=== PATIENT | female | born 1960 | race Caucasian/White ===

== ENCOUNTER 2017-05-05 08:43 | Emergency (ER) | payer OTHER ==
[2017-05-05 08:50] VITALS: O2SAT 94
[2017-05-05] MEDS ORDERED: MOTRIN 600 MG PO ONE (08:59)
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
[2017-05-05] MEDS ORDERED: MOTRIN 600 MG ONE (09:03)
--- NOTE | 2017-05-05 10:09 | XRAY ---
Indication: Pain following injury. Comparison: None 3 nonweightbearing views of the left foot demonstrates tiny posterior talar accessory ossicle and tiny plantar heel spur. No other bony, articular, or soft tissue abnormalities.
--- NOTE | 2017-05-05 10:09 | XRAY ---
Indication: Pain following injury. Comparison: None 3 views of the left ankle demonstrates tiny posterior talar accessory ossicle and tiny plantar heel spur. No other bony, articular, or soft tissue abnormalities.
[2017-05-05 10:34] VITALS: BP 137/78; PULSE 66
== END 2017-05-05 10:45 | disposition home or self-care (01) ==
LOC: ED 08:43
DX: S90.32XA Contusion of left foot, initial encounter (principal); W22.8XXA Striking against or struck by other objects, initial encounter; I10 Essential (primary) hypertension
CPT/HCPCS: 73610; 73630; 99283; A9270-GY

== ENCOUNTER 2017-11-25 15:24 | Observation (INO) | payer OTHER ==
[2017-11-25] MEDS ORDERED: APRESOLINE 20 MG/ML INJ IV ONE ×2 (16:35→18:38)
[2017-11-25] MEDS ORDERED: Catapres 0.1 MG PO ONE (16:36)
[2017-11-25] MEDS ORDERED: DUONEB 0.5-3 MG/3 ml Neb IH ONE ×2 (16:38→16:54)
--- NOTE | 2017-11-25 16:42 | ERPHSYRPT ---
- History of Present Illness Time Seen by Provider: 11/25/17 16:00 Source: patient Exam Limitations: clinical condition Patient Subjective Stated Complaint: pt her per PCP office, went for cough and congestion, taking OTC meds with no relief, PCP advised HTN, manual pressure at time of triage Triage Nursing Assessment: pt alert and oriented to person, place and time, states she has chest congestion, cough, runny nose, went to PCP for symptoms, advised in office she was hypertensive, pt states she was given PO med for BP but unsure what, Physician History: PATIENT WITH A HISTORY OF COPD AND HYPERTENSION REFERRED FROM PRIMARY CARE PROVIDER FOR EVALUATION OF BLOOD PRESSURE. HAS CHRONIC PRODUCTIVE COUGH. DENIES HEADACHE, CHEST PAIN. HAS BEEN PLACED OF SEVERAL DIFFERENT BLOOD PRESSURE MEDICATIONS OVER THE PAST 6 MONTHS, COREG, NORVASC AND LISINOPRIL UNABLE TO TAKE DUE TO SIDE EFFECTS. Timing/Duration: day(s) Severity: moderate Associated Symptoms: shortness of breath, cough Allergies/Adverse Reactions: fentanyl [From Duragesic] Adverse Reaction (Intermediate, Verified 05/05/17 08: 50) shaking/ jerking oxycodone HCl [From Percocet] Adverse Reaction (Mild, Verified 05/05/17 08:50) Vomiting Home Medications: Trazodone HCl 150 mg [Desyrel 150 MG] 150 mg PO HS 03/16/12 [History] Atenolol 100 mg PO BID 05/05/17 [History] Hx Tetanus, Diphtheria Vaccination/Date Given: Yes Hx Influenza Vaccination/Date Given: No Hx Pneumococcal Vaccination/Date Given: No - Review of Systems Constitutional: No Fever, No Chills Eyes: No Symptoms Ears, Nose, & Throat: No Symptoms Respiratory: Cough, Dyspnea on Exertion (FERNANDEZ), No Dyspnea Cardiac: No Symptoms, No Chest Pain, No Edema, No Syncope Abdominal/Gastrointestinal: No Symptoms, No Abdominal Pain, No Nausea, No Vomiting, No Diarrhea Genitourinary Symptoms: No Symptoms, No Dysuria Musculoskeletal: No Symptoms, No Back Pain, No Neck Pain Skin: No Rash Neurological: No Dizziness, No Focal Weakness, No Sensory Changes Psychological: No Symptoms Endocrine: No Symptoms All Other Systems: Reviewed and Negative - Past Medical History Pertinent Past Medical History: Yes Neurological History: Migraines ENT History: No Pertinent History Cardiac History: No Pertinent History Respiratory History: COPD Endocrine Medical History: No Pertinent History Musculoskeletal History: Arthritis, Degenerative Disk Disease GI Medical History: No Pertinent History History: No Pertinent History Psycho-Social History: Anxiety, Depression Female Reproductive Disorders: No Pertinent History Other Medical History: pain clinic patient, sees Dr. Cardenas for back pain - Past Surgical History Past Surgical History: Yes Neuro Surgical History: No Pertinent History Cardiac: No Pertinent History Respiratory: No Pertinent History Gastrointestinal: No Pertinent History Genitourinary: No Pertinent History Musculoskeletal: No Pertinent History Female Surgical History: Hysterectomy Other Surgical History: tonsilectomy as a child - Social History Smoking Status: Current every day smoker How long have you smoked: 45 years Exposure to second hand smoke: Yes Drug Use: none Patient Lives Alone: No - Female History Hx Now: No - Nursing Vital Signs Nursing Vital Signs: Initial Vital Signs Temperature 99.4 F 11/25/17 15:51 Pulse Rate 91 H 11/25/17 15:51 Respiratory Rate 22 11/25/17 15:51 Blood Pressure 190/86 11/25/17 15:51 O2 Sat by Pulse Oximetry 95 11/25/17 15:51 Pain Scale Pain Intensity 9 - Physical Exam General Appearance: no apparent distress, alert Eye Exam: PERRL/EOMI, eyes nml inspection Ears, Nose, Throat Exam: normal ENT inspection, TMs normal, pharynx normal, moist mucous membranes Neck Exam: normal inspection, non-tender, supple, full range of motion Respiratory Exam: normal breath sounds, lungs clear, diminished breath sounds ( AT BASES), No respiratory distress Cardiovascular Exam: regular rate/rhythm, normal heart sounds, normal peripheral pulses Gastrointestinal/Abdomen Exam: soft, normal bowel sounds, No tenderness, No mass Back Exam: normal inspection, normal range of motion, No CVA tenderness, No vertebral tenderness Extremity Exam: normal inspection, normal range of motion, pelvis stable Neurologic Exam: alert, oriented x 3, cooperative, normal mood/affect, nml cerebellar function, nml station & gait, sensation nml, No motor deficits Skin Exam: normal color, warm, dry, No rash Lymphatic Exam: No adenopathy SpO2 Interpretation: normal SpO2: 95 Oxygen Delivery: Room Air - Course EKG Interpreted by Me: RATE, Sinus Rhythm, NORMAL AXIS - Radiology Exams Chest X-ray Interpretation: Interpreted by me (COPD NO INFILTRATES) - CT Exams Head CT Interpretation: Discussed w/radiologist, No/Intracranial Hemorrhag Ordered Tests: Active Orders 24 hr Category Date Time Status Up Ad Mckenzie ROUTINE Activity 11/25/17 22:15 Ordered Admission/Status Order ROUTINE Care 11/25/17 22:14 Ordered Call Admit Doctor for Orders ON ADMISSION Care 11/25/17 22:15 Ordered Code Status Order ROUTINE Care 11/25/17 22:14 Ordered EKG-ER Only STAT Care 11/25/17 16:34 Active IV Care Q6H Care 11/25/17 22:14 Ordered IV Insertion STAT Care 11/25/17 16:34 Active Telemetry ROUTINE Care 11/25/17 22:13 Ordered Vital Signs .[id number],q3omx2,q1hx2,[id number] Care 11/25/17 22:13 Ordered Cardiac Diet Diet 11/25/17 Breakfast Ordered CHEST 1 VIEW (PORTABLE) Stat Exams 11/25/17 16:34 Taken HEAD WITHOUT CONTRAST [CT] Stat Exams 11/25/17 19:59 Taken BMP Stat Lab 11/25/17 16:50 Completed CBC W DIFF Stat Lab 11/25/17 16:50 Completed TROPONIN Q3H Lab 11/25/17 16:50 Completed TROPONIN Q3H Lab 11/25/17 20:20 Received TROPONIN Q3H Lab 11/25/17 22:45 Ordered TROPONIN Q3H Lab 11/26/17 01:45 Ordered TROPONIN Q3H Lab 11/26/17 04:45 Ordered Oxygen NASAL CANNULA 2 lpm RT 11/25/17 22:13 Ordered Pulse Oximetry CONTINUOUS RT 11/25/17 22:16 Ordered Respiratory Nebulizer STAT RT 11/25/17 16:38 Completed Transfer Order Routine Transfer 11/25/17 Ordered Medication Summary Generic Name Dose Route Start Last Admin Trade Name Freq PRN Reason Stop Dose Admin Sodium Chloride 1,000 mls @ 100 mls/hr 11/25/17 16:45 11/25/17 17:26 Sodium Chloride 0.9% 1000 Ml IV 12/25/17 16:44 100 mls/hr .Q10H LITA Administration Nicardipine HCl 25 mg/ Sodium 250 mls @ 50 mls/hr 11/25/17 19:23 11/25/17 20: 03 Chloride IV 12/25/17 19:22 7.5 mg/hr .Q5H PRN 75 mls/hr TITRATE FOR BLOOD PRESSURE Infusion 5 MG/HR Discontinued Medications Generic Name Dose Route Start Last Admin Trade Name Parveen PRN Reason Stop Dose Admin Albuterol/Ipratropium 3 ml 11/25/17 16:38 11/25/17 17:01 Duoneb 0.5-3 Mg/3 Ml Neb IH 11/25/17 16:39 3 ml STAT ONE Administration Albuterol/Ipratropium Confirm 11/25/17 16:54 Duoneb 0.5-3 Mg/3 Ml Neb Administered 11/25/17 16:55 Dose 3 ml IH .STK-MED ONE Clonidine 0.1 mg 11/25/17 16:36 11/25/17 17:27 Catapres 0.1 Mg PO 11/25/17 16:37 0.1 mg STAT ONE Administration Clonidine Confirm 11/25/17 17:23 Catapres 0.1 Mg Administered 11/25/17 17:24 Dose 0.1 mg .ROUTE .STK-MED ONE Hydralazine HCl 10 mg 11/25/17 16:35 11/25/17 17:24 Apresoline 20 Mg/Ml Inj IV 11/25/17 16:36 10 mg STAT ONE Administration Hydralazine HCl Confirm 11/25/17 17:23 Apresoline 20 Mg/Ml Inj Administered 11/25/17 17:24 Dose 20 mg .ROUTE .STK-MED ONE Hydralazine HCl 10 mg 11/25/17 18:38 11/25/17 18:58 Apresoline 20 Mg/Ml Inj IV 11/25/17 18:39 10 mg STAT ONE Administration Hydralazine HCl Confirm 11/25/17 18:53 Apresoline 20 Mg/Ml Inj Administered 11/25/17 18:54 Dose 20 mg .ROUTE .STK-MED ONE Dextrose Confirm 11/25/17 19:26 Dextrose 5%/Water Iv Soln. 250 Ml Administered 11/25/17 19:27 Dose 250 mls @ ud IV .STK-MED ONE Morphine Sulfate 4 mg 11/25/17 19:57 11/25/17 20:03 Morphine Sulfate 4 Mg Inj IV 11/25/17 19:58 4 mg STAT ONE Administration Morphine Sulfate Confirm 11/25/17 19:57 Morphine Sulfate 4 Mg Inj Administered 11/25/17 19:58 Dose 4 mg .ROUTE .STK-MED ONE Nicardipine HCl Confirm 11/25/17 19:26 Cardene 25 Mg/10 Ml Administered 11/25/17 19:27 Dose 25 mg IV .STK-MED ONE Ondansetron HCl 4 mg 11/25/17 19:57 11/25/17 20:07 Zofran 4 Mg/2 Ml Vial IV 11/25/17 19:58 4 mg STAT ONE Administration Ondansetron HCl Confirm 11/25/17 20:06 Zofran 4 Mg/2 Ml Vial Administered 11/25/17 20:07 Dose 4 mg .ROUTE .STK-MED ONE Lab/Rad Data: Laboratory Result Diagrams 11/25/17 16:50 11/25/17 16:50 Laboratory Results 11/25/17 11/25/17 11/25/17 Range/Units 16:50 16:50 16:50 WBC 7.1 (4.0-10.5) K/mm3 RBC 3.93 L (4.1-5.4) M/mm3 Hgb 13.4 (12.0-16.0) gm/dl Hct 39.8 (35-47) % MCV 101.3 H (78-100) fl MCH 34.0 H (26-32) pg MCHC 33.7 (32-36) g/dl RDW 13.1 (11.5-14.0) % Plt Count 210 (150-450) K/mm3 MPV 9.2 (6-9.5) fl Gran % 79.0 H (36.0-66.0) % Lymphocytes % 12.8 L (24.0-44.0) % Monocytes % 7.9 (0.0-12.0) % Eosinophils % 0.0 (0.00-5.0) % Basophils % 0.3 (0.0-0.4) % Basophils # 0.02 (0-0.4) Sodium 135 L (136-145) mEq/L Potassium 4.1 (3.5-5.1) mEq/L Chloride 96 L (98-107) mEq/L Carbon Dioxide 24.6 (21-32) mEq/L Anion Gap 18.1 H (5-15) MEQ/L BUN 5 L (9-20) mg/dL Creatinine 0.68 (0.55-1.30) mg/dl Estimated GFR > 60 ML/MIN Glucose 111 H (70-110) MG/DL Calcium 9.3 (8.5-10.1) mg/dL Troponin I < 0.017 (0.000-0.056) ng/ml - Progress Progress Note: 11/25/17 19:59 ADMINISTERED IV NORMAL SALINE 50ML/HR, CATAPRES0.1MG ORALLY, HYDRALAZINE 10MG IV X 2 DOSES 11/25/17 21:45 PLACED ON CARDENE INFUSION 5MG/HR TITRATED TO 7.5MG/HR, BLOOD PRESSURE IMPROVED TO BP 166/86 Discussed with : Jerome (DISCUSSED WITH DR MELVIN AT 2145 FOR OBSERVATION) - Departure Time of Disposition: 22:00 Departure Disposition: Observation Clinical Impression: UNCONTROLLED HYPERTENSION, EXACERBATION COPD Condition: Stable Critical Care Time: No Referrals: ADELE LEE [Primary Care Provider] -
[2017-11-25] MEDS ORDERED: Sodium Chloride 0.9% 1000 ML 1,000 ML IV SCH (16:45)
[2017-11-25 17:01] LABS: BASOPHIL % 0.3 % (0.0-0.4); Basophil (Absolute #) 0.02 (0-0.4); Eosinophil (Absolute #) 0 (0-0.5); Granulocyte Absolute (ANC) 5.61 (1.4-6.9); Hematocrit 39.8 % (35-47); Hemoglobin 13.4 gm/dl (12.0-16.0); Lymphocyte (Absolute #) 0.91 (1.0-4.6); Lymphocytes % 12.8 % (24.0-44.0); Mean Cell Volume 101.3 fl (78-100); Mean Corpuscular Hgb Concent. 33.7 g/dl (32-36); Mean Platelet Volume 9.2 fl (6-9.5); Monocyte (Absolute #) 0.56 (0.0-1.3); Monocytes % 7.9 % (0.0-12.0); Platelet Count 210 K/mm3 (150-450); Red Blood Count 3.93 M/mm3 (4.1-5.4); Red Cell Distribution Width 13.1 % (11.5-14.0); White Blood Count 7.1 K/mm3 (4.0-10.5)
[2017-11-25] MEDS ORDERED: APRESOLINE 20 MG/ML INJ ONE ×2 (17:23→18:53)
[2017-11-25] MEDS ORDERED: Sodium Chloride 0.9% 1000 ML 1,000 ML ONE (17:23)
[2017-11-25] MEDS ORDERED: Catapres 0.1 MG ONE (17:23)
[2017-11-25 17:29] LABS: ANION GAP 18.1 MEQ/L (5-15); BLOOD UREA NITROGEN 5 mg/dL (9-20); CHLORIDE 96 mEq/L (98-107); Calcium 9.3 mg/dL (8.5-10.1); Carbon Dioxide 24.6 mEq/L (21-32); Creatinine 1 0.68 mg/dl (0.55-1.30); EST GLOMERULAR FILTRATION RATE > 60 ML/MIN; Glucose 111 MG/DL (70-110); Potassium 4.1 mEq/L (3.5-5.1); SODIUM 135 mEq/L (136-145)
[2017-11-25] MEDS ORDERED: CARDENE 25 MG/10 ML IV ONE (19:26)
[2017-11-25] MEDS ORDERED: Dextrose 5%/Water IV Soln. 250 ML 250 ML IV ONE (19:26)
[2017-11-25] MEDS: CARDENE 25 MG/10 ML*** 25 MG in Sodium Chloride 0.9% 250 ML 240 ML IV PRN (19:39)
[2017-11-25] MEDS ORDERED: MORPHINE SULFATE 4 MG INJ ONE (19:57)
[2017-11-25] MEDS ORDERED: MORPHINE SULFATE 4 MG INJ IV ONE (19:57)
[2017-11-25] MEDS ORDERED: Zofran 4 MG/2 ML VIAL IV ONE (19:57)
[2017-11-25] MEDS ORDERED: Zofran 4 MG/2 ML VIAL ONE (20:06)
[2017-11-25] MEDS ORDERED: TYLENOL 325 MG PO PRN (22:13)
[2017-11-25] MEDS ORDERED: DUONEB 0.5-3 MG/3 ml Neb IH PRN (22:13)
[2017-11-25] MEDS ORDERED: Zofran 4 MG/2 ML VIAL IV PRN (22:13)
[2017-11-26] MEDS: Sodium Chloride 0.9% 1000 ML 1,000 ML IV SCH ×3 (00:03→17:59)
[2017-11-26] MEDS: MORPHINE SULFATE 4 MG INJ IV PRN ×3 (00:11→08:11)
[2017-11-26] MEDS: CARDENE 25 MG/10 ML*** 25 MG in Sodium Chloride 0.9% 250 ML 240 ML IV PRN ×2 (00:12→06:14)
[2017-11-26] MEDS: Advair Hfa 230/21 Mcg COMMON CANISTER IH SCH ×2 (07:50→19:50)
--- NOTE | 2017-11-26 08:46 | XRAY ---
Indication: Headache. Hypertension. Multiple contiguous axial images obtained through the head without contrast. Comparison: None Normal appearing brain parenchyma, ventricles, and bony calvarium. Visualized paranasal sinuses and mastoid air cells are clear. Impression: Normal CT head without contrast exam. CT DI 67.41
--- NOTE | 2017-11-26 09:06 | PCM.HP ---
History of Present Illness - Chief Complaint Chief Complaint: hypertension History of Present Illness: is a 57 year old female pt of mine from [facility] who had seen Deepa Paez yesterday with a cough. Her BP was 210/110 and she was sent to ER for further evaluation. She was admitted through the ER on nicardipine drip and this morning her bp is 131 systolic. She c/o 1 week of cough, some dizziness, GRIFFITH since yesterday. Some chest tightness. Troponins have been neg. Denies fever. - Review of Systems Respiratory: Cough Abdominal/Gastrointestinal: Abdominal Pain, Nausea, Diarrhea, Appetite Changes ( x 1 wk) Musculoskeletal: Back Pain (chronic) Psychological: Anxiety, Depression, No Suicidal Ideations All Other Systems: Reviewed and Negative Medications & Allergies Home Medications: Home Medication List Albuterol Sulfate [Ventolin Hfa] 2 puff IH Q4HPRN PRN 11/26/17 [History Confirmed 11/26/17] Budesonide/Formoterol Fumarate [Symbicort 160-4.5 Mcg Inhaler] 2 puff IH BID 06/05 [History Confirmed 11/26/17] Clonazepam 0.5 mg [Klonopin 0.5 MG] 0.5 mg PO TID 11/26/17 [History Confirmed 11/26/17] Gabapentin [Gabapentin] 1 cap PO 11/26/17 [History Confirmed 11/26/17] Gabapentin [Gabapentin] 2 cap PO HS 11/26/17 [History Confirmed 11/26/17] Meloxicam 15 mg PO DAILY 11/26/17 [History Confirmed 11/26/17] Omeprazole [Omeprazole] 40 mg PO DAILY 11/26/17 [History Confirmed 11/26/17] Tizanidine HCl 4 mg [Zanaflex 4 MG] 4 mg PO TID 11/26/17 [History Confirmed 11/26/17] Trazodone HCl 150 mg [Desyrel 150 MG] 1 tab PO HS 11/26/17 [History Confirmed 11/26/17] Allergies/Adverse Reactions: Allergies Allergy/AdvReac Type Severity Reaction Status Date / Time fentanyl [From Duragesic] AdvReac Mild Nausea Verified 11/25/17 23:28 oxycodone HCl [From Percocet] AdvReac Mild Nausea Verified 11/25/17 23:28 - Past Medical History Past Medical History: Yes Neurological History: Migraines ENT History: No Pertinent History Cardiac History: No Pertinent History Respiratory History: COPD Endocrine Medical History: No Pertinent History Musculoskelatal History: Arthritis, Degenerative Disk Disease GI Medical History: No Pertinent History History: No Pertinent History Pyscho-Social History: Anxiety, Depression Reproductive Disorders: No Pertinent History Comment: pain clinic patient, sees Dr. Cardenas for back pain - Female History Are you now?: No - Past Surgical History Past Surgical History: Yes Neuro Surgical History: No Pertinent History Cardiac History: No Pertinent History Respiratory Surgery: No Pertinent History GI Surgical History: No Pertinent History Genitourinary Surgical Hx: No Pertinent History Musculskeletal Surgical Hx: No Pertinent History Female Surgical History: Hysterectomy Other Surgical History: . - Social History Smoking Status: Current every day smoker How long have you smoked: 45 years Exposure to second hand smoke: Yes Alcohol: Occasionally Drug Use: none - Physical Exam Vital Signs: Vital Signs - 24 hr Temp Pulse Resp BP Pulse Ox 11/26/17 08:23 81 14 97 11/26/17 08:00 98.4 F 70 16 122/69 96 11/26/17 07:00 78 18 143/70 97 11/26/17 06:00 68 12 134/68 98 11/26/17 05:00 75 20 122/64 96 11/26/17 04:00 97.7 F 84 21 133/70 94 L 11/26/17 03:00 80 16 134/71 90 L 11/26/17 02:00 80 17 129/74 91 L 11/26/17 01:30 84 17 126/65 94 L 11/26/17 01:00 92 H 15 134/73 92 L 11/26/17 00:00 92 H 15 159/74 91 L 11/25/17 23:45 99 F 96 H 22 177/78 94 L 11/25/17 23:40 101 H 24 94 L 11/25/17 22:24 106 H 20 159/73 96 11/25/17 22:20 95 11/25/17 21:30 108 H 20 158/75 96 11/25/17 20:38 114 H 20 185/105 94 L 11/25/17 20:04 194/98 11/25/17 19:40 70 18 188/93 98 11/25/17 18:58 201/101 11/25/17 18:06 20 184/94 95 11/25/17 17:28 78 183/103 11/25/17 17:04 86 20 92 L 11/25/17 15:51 99.4 F 91 H 22 190/86 95 Oxygen-Last 24 hours O2 Percentage 2 Liters = 28% O2 Percentage 2 Liters = 28% O2 Percentage 2 Liters = 28% O2 Percentage 2 Liters = 28% General Appearance: no apparent distress, alert Neurologic Exam: oriented x 3, cooperative Eye Exam: eyes nml inspection Ears, Nose, Throat Exam: pharynx normal, moist mucous membranes Neck Exam: normal inspection, non-tender, No lymphadenopathy Respiratory Exam: normal breath sounds, lungs clear, No crackles/rales, No rhonchi, No wheezing Cardiovascular Exam: regular rate/rhythm, normal heart sounds, No murmur Gastrointestinal/Abdomen Exam: soft, normal bowel sounds, No tenderness, No distention, No mass Extremity Exam: No pedal edema, No swelling Skin Exam: normal color, warm, dry, No rash Results - Labs Lab/Micro Results: Lab Results-Last 24 Hours 11/25/17 11/26/17 11/26/17 Range/Units 23:30 01:45 05:00 Troponin I < 0.017 < 0.017 < 0.017 (0.000-0.056) ng/ml - Other Procedures and Tests Respiratory Therapy 11/25/17 23:40 Respiratory Nebulizer UD 11/26/17 00:24 Smoking Cessation Education ONCE 11/26/17 07:00 Respiratory MDI BID Assessment/Plan (1) COPD (chronic obstructive pulmonary disease) Current Visit: Yes Status: Acute Qualifiers: COPD type: emphysema Assessment & Plan: Will start pt on IV antibiotics here, still having cough. (2) Hypertensive urgency Current Visit: Yes Status: Acute Assessment & Plan: WIll restart home meds and can wean off nicardipine drip. Code(s): I16.0 - HYPERTENSIVE URGENCY (3) Anxiety Current Visit: No Status: Acute Assessment & Plan: Restart klonopin. Code(s): F41.9 - ANXIETY DISORDER, UNSPECIFIED (4) Depressive disorder Current Visit: No Status: Acute Assessment & Plan: denies suicidal ideation. Code(s): F32.9 - MAJOR DEPRESSIVE DISORDER, SINGLE EPISODE, UNSPECIFIED (5) Chronic back pain Current Visit: Yes Status: Acute Assessment & Plan: seeing Dr. Cardenas and off opioids outpatient. Code(s): M54.9 - DORSALGIA, UNSPECIFIED; G89.29 - OTHER CHRONIC PAIN
[2017-11-26] MEDS ORDERED: Phenergan 25 MG INJ IV PRN (09:10)
[2017-11-26] MEDS: ROCEPHIN 1 Gm-D5w 50 ml Bag** 1 G/50 ML IVPB IV SCH (09:25)
[2017-11-26] MEDS ORDERED: Ventolin Hfa MDI IH PRN (09:27)
[2017-11-26] MEDS ORDERED: PROVENTIL COMMON CANISTER IH PRN (09:42)
[2017-11-26] MEDS ORDERED: Zithromax 500 MG/ 250 ML NaCl Premix 500 MG/250 ML IVPB IV SCH (10:00)
[2017-11-26] MEDS ORDERED: TENORMIN 50 MG PO SCH (10:00)
[2017-11-26] MEDS ORDERED: Zithromax 250 MG TABLET PO ONE (10:08)
[2017-11-26] MEDS: Protonix 40MG Tablet PO SCH (10:41)
[2017-11-26] MEDS: NEURONTIN 300 MG PO SCH ×2 (10:41→22:30)
[2017-11-26] MEDS: Klonopin 0.5 MG PO SCH ×3 (10:41→23:00)
[2017-11-26] MEDS: ENOXAPARIN SODIUM SQ SCH (10:42)
[2017-11-26] MEDS: Zanaflex 4 MG PO SCH ×3 (10:42→23:00)
[2017-11-26] MEDS ORDERED: Sodium Chloride 0.9% 500 ML 500 ML IV ONE ×2 (12:45→17:45)
[2017-11-26] MEDS: TORAdol 30 mg Injection IV PRN ×2 (14:42→20:39)
--- NOTE | 2017-11-26 15:32 | XRAY ---
Indication: Cough and back pain. Comparison: February 13, 2014. Portable chest again demonstrates normal heart and lungs with incidental right base calcified granulomas. Bony thorax intact. No new/acute findings.
[2017-11-26] MEDS: Desyrel 150 MG PO SCH (23:00)
[2017-11-27] MEDS: TORAdol 30 mg Injection IV PRN ×3 (03:49→17:14)
[2017-11-27] MEDS: Sodium Chloride 0.9% 1000 ML 1,000 ML IV SCH (06:38)
[2017-11-27] MEDS: Advair Hfa 230/21 Mcg COMMON CANISTER IH SCH ×2 (07:18→18:54)
[2017-11-27 07:29] LABS: Amphetamine,Urine NEG. (NEGATIVE); Barbiturate,Urine NEG. (NEGATIVE); Benzodiazepine,Urine POS. (NEGATIVE); Cocaine,Urine NEG. (NEGATIVE); Methadone,Urine NEG. (NEGATIVE); Opiate,Urine POS. (NEGATIVE); PCP,Urine NEG. (NEGATIVE); THC,Urine NEG. (NEGATIVE)
[2017-11-27] MEDS ORDERED: NORVASC 5 MG PO ONE (08:25)
[2017-11-27] MEDS: NEURONTIN 300 MG PO SCH ×3 (08:33→21:41)
--- NOTE | 2017-11-27 08:52 | PCM.NOTE ---
Date and Time: 11/27/17 0847 Subjective Assessment: Overnight her BP dropped to 72/42 at 1730 yesterday and HR dropped into the 40s overnight. She did get her atenelol yesterday. Weaned off the nicardipine drip yesterday morning. Then early this morning BP increased to 180s systolic. Objective Exam General Appearance: no apparent distress, alert, anxiety Neurologic Exam: oriented x 3, cooperative Skin Exam: normal color, warm, dry, No rash Respiratory Exam: normal breath sounds, lungs clear, No crackles/rales, No rhonchi, No wheezing Cardiovascular Exam: regular rate/rhythm, normal heart sounds, No murmur Gastrointestinal/Abdomen Exam: soft, No tenderness, No distention Back Exam: normal inspection, No rash OBJECTIVE DATA Vital Signs: Vital Signs - 24 hr Temp Pulse Resp BP BP Pulse Ox 11/27/17 07:53 60 11/27/17 07:52 98.3 F 60 19 184/77 97 11/27/17 07:18 69 14 93 L 11/27/17 06:42 56 L 131/64 11/27/17 06:00 48 L 14 122/54 94 L 11/27/17 04:00 98.3 F 52 L 16 146/83 94 L 11/27/17 02:00 98.7 F 48 L 19 121/59 98 11/27/17 01:00 51 L 17 116/64 97 11/27/17 00:00 98.7 F 49 L 15 114/63 97 11/26/17 22:59 52 L 106/76 11/26/17 22:00 53 L 15 104/59 97 11/26/17 21:00 56 L 14 105/55 99 11/26/17 20:00 98.7 F 55 L 14 112/57 97 11/26/17 19:45 53 L 16 97 11/26/17 18:30 92/61 11/26/17 18:17 82/56 11/26/17 18:00 53 L 17 90/50 96 11/26/17 17:33 72/42 11/26/17 17:31 76/44 11/26/17 17:00 55 L 18 106/70 98 11/26/17 16:00 98.5 F 55 L 16 114/68 98 11/26/17 15:00 50 L 14 109/61 98 11/26/17 14:00 52 L 13 106/60 97 11/26/17 13:00 51 L 15 93/53 97 11/26/17 12:00 98.4 F 53 L 13 81/61 96 11/26/17 11:45 53 L 17 88/55 97 11/26/17 11:00 56 L 12 123/64 93 L 11/26/17 10:00 62 14 120/62 97 11/26/17 09:40 83 114/60 11/26/17 09:00 74 17 125/70 97 Oxygen-Last 24 hours O2 Percentage 2 Liters = 28% O2 Percentage 2 Liters = 28% O2 Percentage 2 Liters = 28% O2 Percentage 2 Liters = 28% O2 Percentage 2 Liters = 28% O2 Percentage 2 Liters = 28% O2 Percentage 2 Liters = 28% O2 Percentage 2 Liters = 28% O2 Percentage 2 Liters = 28% O2 Percentage 2 Liters = 28% O2 Percentage 2 Liters = 28% O2 Percentage 2 Liters = 28% O2 Percentage 2 Liters = 28% O2 Percentage 2 Liters = 28% O2 Percentage 2 Liters = 28% O2 Percentage 2 Liters = 28% O2 Percentage 2 Liters = 28% Pain Assessment - Last Documented Pain Intensity 8 Pain Scale Used 0-10 Pain Scale Intake and Output: Intake & Output 11/24/17 11/25/17 11/26/17 11/27/17 11:59 11:59 11:59 11:59 Intake Total 753 3639 Output Total 750 300 Balance 3 3339 Weight 67.3 kg 70.4 kg Lab Results: Lab Results-Last 24 Hours 11/27/17 Range/Units 05:45 Urine Opiates Level POS. (NEGATIVE) Ur Methadone NEG. (NEGATIVE) Urine Barbiturates NEG. (NEGATIVE) Ur Phencyclidine (PCP) NEG. (NEGATIVE) Urine Amphetamine NEG. (NEGATIVE) U Benzodiazepine Level POS. (NEGATIVE) Urine Cocaine NEG. (NEGATIVE) Urine Marijuana (THC) NEG. (NEGATIVE) Assessment/Plan (1) COPD (chronic obstructive pulmonary disease) Current Visit: Yes Status: Acute Qualifiers: COPD type: emphysema Assessment & Plan: On IV rocephin and po zithromax. (2) Hypertensive urgency Current Visit: Yes Status: Acute Assessment & Plan: Was treated from the ER with IV nicardipine overnight and BP decreased, then dropped to the 70s systolic in the afternoon. Responded to fluid bolus. Pt is a terrible historian, told RN she had never seen a stem setter in her life, but per [place] records saw Dr. Gregg in 2016. Code(s): I16.0 - HYPERTENSIVE URGENCY (3) Anxiety Current Visit: No Status: Acute Assessment & Plan: She has been on po klonopin at home, however will need to re-evaluate this as her brother yesterday was telling the nurse that she drinks quite a bit of alcohol consistently at home. Code(s): F41.9 - ANXIETY DISORDER, UNSPECIFIED (4) Depressive disorder Current Visit: No Status: Acute Assessment & Plan: Has a history of suicide attempt. Does struggle with chronic pain and anxiety as well. Code(s): F32.9 - MAJOR DEPRESSIVE DISORDER, SINGLE EPISODE, UNSPECIFIED (5) Chronic back pain Current Visit: Yes Status: Acute Assessment & Plan: Now sees pain management, Dr. Cardenas. Code(s): M54.9 - DORSALGIA, UNSPECIFIED; G89.29 - OTHER CHRONIC PAIN
[2017-11-27] MEDS: Klonopin 0.5 MG PO SCH ×3 (08:57→21:42)
[2017-11-27] MEDS: Zithromax 250 MG TABLET PO SCH (08:58)
[2017-11-27] MEDS: Protonix 40MG Tablet PO SCH (08:58)
[2017-11-27 09:34] LABS: Hematocrit 40.3 % (35-47); Hemoglobin 12.6 gm/dl (12.0-16.0); Mean Cell Volume 108.3 fl (78-100); Mean Corpuscular Hgb Concent. 31.3 g/dl (32-36); Mean Platelet Volume 9.9 fl (6-9.5); Platelet Count 145 K/mm3 (150-450); Red Blood Count 3.72 M/mm3 (4.1-5.4); Red Cell Distribution Width 13.8 % (11.5-14.0); White Blood Count 4.4 K/mm3 (4.0-10.5)
[2017-11-27 09:38] LABS: Mean Corpuscular Hemoglobin 33.8 pg (26-32)
[2017-11-27 09:53] LABS: BLOOD UREA NITROGEN 7 mg/dL (9-20); CHLORIDE 103 mEq/L (98-107); Calcium 8.6 mg/dL (8.5-10.1); Carbon Dioxide 27.6 mEq/L (21-32); Creatinine 1 0.84 mg/dl (0.55-1.30); EST GLOMERULAR FILTRATION RATE > 60 ML/MIN; Glucose 120 MG/DL (70-110); Potassium 4.6 mEq/L (3.5-5.1); SODIUM 139 mEq/L (136-145)
[2017-11-27] MEDS: Zanaflex 4 MG PO SCH ×3 (10:03→21:42)
[2017-11-27] MEDS: ENOXAPARIN SODIUM SQ SCH (10:03)
[2017-11-27] MEDS: ROCEPHIN 1 Gm-D5w 50 ml Bag** 1 G/50 ML IVPB IV SCH (10:03)
[2017-11-27] MEDS: NORVASC 5 MG PO SCH (21:42)
[2017-11-27] MEDS: Desyrel 150 MG PO SCH (21:42)
[2017-11-28] MEDS: TORAdol 30 mg Injection IV PRN ×2 (03:49→10:30)
[2017-11-28] MEDS: Sodium Chloride 0.9% 1000 ML 1,000 ML IV SCH (05:20)
[2017-11-28] MEDS: Advair Hfa 230/21 Mcg COMMON CANISTER IH SCH (06:54)
[2017-11-28] MEDS: NEURONTIN 300 MG PO SCH ×2 (07:38→11:47)
[2017-11-28] MEDS: ROCEPHIN 1 Gm-D5w 50 ml Bag** 1 G/50 ML IVPB IV SCH (09:02)
[2017-11-28] MEDS: ENOXAPARIN SODIUM SQ SCH (09:02)
[2017-11-28] MEDS: Zithromax 250 MG TABLET PO SCH (09:03)
[2017-11-28] MEDS: Zanaflex 4 MG PO SCH (09:04)
[2017-11-28] MEDS: Protonix 40MG Tablet PO SCH (09:04)
[2017-11-28] MEDS: NORVASC 5 MG PO SCH (09:04)
[2017-11-28] MEDS: Klonopin 0.5 MG PO SCH (09:04)
[2017-11-28 11:25] VITALS: BP 186/82; PULSE 65; O2SAT 94
--- NOTE | 2017-11-28 12:36 | PCM.DS ---
Discharge Summary Date of Admission: 11/25/17 23:00 Admitting Physician: ADELE LEE Consults: Consults on Case 11/27/17 08:46 Consult Cardiology ROUTINE Primary Care Provider: ADELE LEE Allergies Allergies Beta-Blockers (Beta-Adrenergic Bloc Adverse Reaction (Severe, Verified 11/27/17 17:08) Profound bradycardia fentanyl [From Duragesic] Adverse Reaction (Mild, Verified 11/25/17 23:28) Nausea oxycodone HCl [From Percocet] Adverse Reaction (Mild, Verified 11/25/17 23:28) Nausea Hospital Summary - Hospital Course Hospital Course: Pt admitted with extremely high BP in the ER; was on nicardipine drip in ICU initially. Was stopped early the next morning and atenalol was given. Throughout the day and night her HR decreased into the 40s and her BP dropped to a low of 76/54; she did not require pressors but responded to gentle IV fluid bolus. The next day cardiology was consulted and advised no more beta blockers. She had started 5mg amlodipine daily for elevated BP that morning, and cardiology advised increasing to BID. They released the pt but would like to see her next week. She stayed overnight for monitoring; her BP were between 130s and 160s systolic. She just got a new BP cuff and has tried it out in the hospital (RN assisted with assembly and use). She will f/u with me in a week or two as well. - Vitals & Intake/Output Vital Signs: Vital Signs Temperature 97.9 F 11/28/17 11:24 Pulse Rate 65 11/28/17 11:24 Respiratory Rate 16 11/28/17 11:24 Blood Pressure 186/82 11/28/17 11:24 O2 Sat by Pulse Oximetry 94 L 11/28/17 11:24 Oxygen-Last Documented O2 Percentage 2 Liters = 28% Intake & Output: Intake & Output 11/26/17 11/27/17 11/28/17 11/29/17 11:59 11:59 11:59 11:59 Intake Total 753 3639 2662 Output Total 698 622 4880 Balance 3 4187 862 Weight 67.3 kg 70.4 kg 71.9 kg - Lab Result Diagrams: 11/27/17 09:15 11/27/17 09:15 - Procedures and Test Procedures and Tests throughout Hospitalization: Therapy Orders & Screens 11/25/17 23:40 Respiratory Nebulizer UD Comment: jaredenedina q4prn Diagnosis: Shortness of Breath 11/26/17 00:24 Smoking Cessation Education ONCE Comment: Diagnosis: hypertension Smoking Status: Current every day smoker How long have you smoked: 45 years Have you smoked in the past 12 months: Yes Approximately how many cigarettes per day: 30 Do you dip or chew tobacco: No 11/26/17 07:00 Respiratory MDI BID Comment: Diagnosis: Shortness of Breath 11/26/17 10:33 EKG ONCE Comment: Diagnosis: hypertension 11/27/17 13:49 Holter Monitor ONCE Comment: Reason For Exam: hypertension/hypotension; bradycardia Diagnosis: hypertension 11/27/17 13:53 Schedule Outpt Stress Test Routine Comment: Diagnosis: hypertension Schedule Outpt Stress Test: Cardiolyte Stress Test Cardiolite Stress Test: Cardiolite Lexiscan Discharge Exam General Appearance: no apparent distress, alert Neurologic Exam: oriented x 3, cooperative Skin Exam: normal color, warm, dry, No rash Respiratory Exam: normal breath sounds, lungs clear, No crackles/rales, No rhonchi, No wheezing Cardiovascular Exam: regular rate/rhythm, normal heart sounds, No murmur Gastrointestinal/Abdomen Exam: soft, No tenderness, No distention Extremity Exam: normal inspection, No pedal edema, No swelling Final Diagnosis/Problem List - Final Discharge Diagnosis/Problem (1) COPD (chronic obstructive pulmonary disease) Current Visit: Yes Status: Acute Assessment & Plan: home on po antibiotics (2) Hypertensive urgency Current Visit: Yes Status: Acute Assessment & Plan: resolved. home on amlodipine 5mg po BID (3) Anxiety Current Visit: No Status: Resolved Assessment & Plan: she is on klonopin at home. We had initial reports during her hospitalization from her brother that, in contrast to what she tells me, she has been drinking quite a bit of alcohol. However, another family member told us to disregard that, he doesn't get along with her and would lie about her alcohol use. She has been denying to me in office. We have discussed not to mix alcohol and BZD. (4) Depressive disorder Current Visit: No Status: Chronic (5) Chronic back pain Current Visit: Yes Status: Chronic Assessment & Plan: Seeing pain mgmt. - Discharge Disposition: Home, Self-Care Condition: Good Prescriptions: New Amlodipine Besylate 5 mg [Norvasc 5 mg] 5 mg PO BID #60 tablet Cefdinir 300 mg [Omnicef 300 mg] 300 mg PO BID #14 capsule Azithromycin 250 mg [Zithromax 250 MG TABLET] 250 mg PO DAILY #2 tablet Continue Omeprazole 40 mg PO DAILY Gabapentin 2 cap PO HS Gabapentin 1 cap PO 08,12 Meloxicam 15 mg PO DAILY Trazodone HCl 150 mg [Desyrel 150 MG] 1 tab PO HS Albuterol Sulfate [Ventolin Hfa] 2 puff IH Q4HPRN PRN PRN Reason: Shortness Of Breath/Wheezing Clonazepam 0.5 mg [Klonopin 0.5 MG] 0.5 mg PO TID Budesonide/Formoterol Fumarate [Symbicort 160-4.5 Mcg Inhaler] 2 puff IH BID Tizanidine HCl 4 mg [Zanaflex 4 MG] 4 mg PO TID Additional Instructions: Write down your blood pressures - take them every day until we get your pressures stable. If your pressure is over 160 on top please call the office. If your blood pressure is over 180 on top or over 110 on the bottom, go to the ER, especially if you have headache, chest or arm pain, or shortness of breath with it. Follow up with: ADELE LEE [Primary Care Provider] - Edward Mcgowan MD [CONSULTING PHYSICIAN] - 12/03/17 11:30 am Forms: Patient Portal Information
== END 2017-11-28 14:35 | disposition home or self-care (01) ==
LOC: ED 15:24 → ICU 23:00 → MED SURG 11-27 18:21
PROVIDERS: ADMIT Family Medicine; ATTEND Family Medicine
DX: J44.9 Chronic obstructive pulmonary disease, unspecified (principal); I16.0 Hypertensive urgency; F41.9 Anxiety disorder, unspecified; F32.9 Major depressive disorder, single episode, unspecified; M54.9 Dorsalgia, unspecified; G89.29 Other chronic pain; F45.42 Pain disorder with related psychological factors; M19.90 Unspecified osteoarthritis, unspecified site; Z79.899 Other long term (current) drug therapy; Z72.0 Tobacco use; J43.9 Emphysema, unspecified
CPT/HCPCS: 36000; 36415; 70450; 71045; 80048; 80307; 84484; 85025; 85027; 93005; 94150; 94640; 94760; 96360; 96361; 96365; 96366; 96374; 96375; 99285; G0378; J0360; J0456; J0696; J1650; J1885; J2270; J2405; Q3014; A9270-GY

== ENCOUNTER 2018-04-07 15:09 | Emergency (ER) | payer OTHER ==
--- NOTE | 2018-04-07 16:45 | ERPHSYRPT ---
- History of Present Illness Time Seen by Provider: 04/07/18 15:45 Source: patient Exam Limitations: no limitations Patient Subjective Stated Complaint: STATES LEGS GAVE OUT TODAY AND SHE FELL LANDING ON LEFT THUMB AND HAND. C/O PAIN TO THUMB AND HAND Triage Nursing Assessment: AMBULATED TO ROOM PER SELF. HOLDING LEFT HAND. SLIGHT SWELLING NOTED TO HAND. DENIES ANY NUMBNESS OR TINGLING. HAS NORMAL ROM TO THUMB AND HAND. Physician History: patient tripped and fell earlier this morning landing on left thumb. Patient states increase pain/swelling to the base of her left thumb. Patient with increased discomfort with movement and relief with immobilization. Pt. with previous L hand/thumb injury Occurred: this morning Method of Injury: fell Quality: intermittent Severity of Pain-Max: moderate Severity of Pain-Current: mild Extremities Pain Location: thumb: left Modifying Factors: Improves With: immobilization (improves), movement (worsens) Associated Symptoms: none Allergies/Adverse Reactions: oxycodone HCl [From Percocet] Adverse Reaction (Mild, Verified 04/07/18 15:33) Nausea Home Medications: Clonazepam 0.5 mg [Klonopin 0.5 MG] 0.5 mg PO TID 11/26/17 [History] Trazodone HCl 150 mg [Desyrel 150 MG] 1 tab PO HS 11/26/17 [History] Baclofen 10 mg [Lioresal 10 mg] 10 mg PO BID 12/03/17 [History] Gabapentin 300 mg PO TID 01/12/18 [History] Meloxicam [Mobic] 15 mg PO DAILY 01/12/18 [History] Tizanidine HCl 4 mg [Zanaflex 4 MG] 4 mg PO TID 01/12/18 [History] Hx Tetanus, Diphtheria Vaccination/Date Given: No Hx Influenza Vaccination/Date Given: No Hx Pneumococcal Vaccination/Date Given: No - Review of Systems Constitutional: No Fever, No Chills Eyes: No Symptoms Ears, Nose, & Throat: No Symptoms Respiratory: No Symptoms, No Cough, No Dyspnea Cardiac: No Symptoms, No Chest Pain, No Edema, No Syncope Abdominal/Gastrointestinal: No Symptoms, No Abdominal Pain, No Nausea, No Vomiting, No Diarrhea Genitourinary Symptoms: No Dysuria Musculoskeletal: Joint Pain (L thumb), No Back Pain, No Neck Pain Skin: No Symptoms, No Rash Neurological: No Symptoms, No Dizziness, No Focal Weakness, No Sensory Changes Psychological: No Symptoms Endocrine: No Symptoms All Other Systems: Reviewed and Negative - Past Medical History Pertinent Past Medical History: Yes Neurological History: Migraines ENT History: No Pertinent History Cardiac History: No Pertinent History Respiratory History: COPD Endocrine Medical History: No Pertinent History Musculoskeletal History: Arthritis, Degenerative Disk Disease GI Medical History: No Pertinent History History: No Pertinent History Psycho-Social History: Anxiety, Depression Female Reproductive Disorders: No Pertinent History Other Medical History: pain clinic patient, sees Dr. Cardenas for back pain - Past Surgical History Past Surgical History: Yes Neuro Surgical History: No Pertinent History Cardiac: No Pertinent History Respiratory: No Pertinent History Gastrointestinal: No Pertinent History Genitourinary: No Pertinent History Musculoskeletal: No Pertinent History Female Surgical History: Hysterectomy Other Surgical History: . - Social History Smoking Status: Current every day smoker How long have you smoked: 45 years Exposure to second hand smoke: Yes Drug Use: none Patient Lives Alone: No - Female History Hx Now: No - Nursing Vital Signs Nursing Vital Signs: Initial Vital Signs Temperature 98 F 04/07/18 15:23 Pulse Rate 90 04/07/18 15:23 Respiratory Rate 16 04/07/18 15:23 Blood Pressure 162/95 04/07/18 15:23 O2 Sat by Pulse Oximetry 93 L 04/07/18 15:23 Pain Scale Pain Intensity 8 - Physical Exam General Appearance: alert Eyes, Ears, Nose, Throat Exam: moist mucous membranes Neck Exam: non-tender, supple Cardiovascular/Respiratory Exam: chest non-tender, normal breath sounds, regular rate/rhythm, no respiratory distress Abdominal Exam: non-tender, No guarding Back Exam: normal inspection, No vertebral tenderness Shoulder Exam: normal inspection, non-tender, no evidence of injury Elbow/Forearm Exam: normal inspection, non-tender, no evidence of injury Wrist Exam: normal inspection, non-tender, no evidence of injury Hand Exam: bone tenderness (base of L thumb), limited ROM, No deformity Neuro/Tendon Exam: normal sensation, normal motor functions Mental Status Exam: alert, oriented x 3, cooperative Skin Exam: normal color, warm, dry SpO2 Interpretation: normal SpO2: 93 Oxygen Delivery: Room Air - Course Nursing assessment & vital signs reviewed: Yes - Radiology Exams Left Hand X-ray Interpretation: Teleradiologist Report, Negative, No Fracture, Other (Old distal 2nd MCP fracture deformity) Ordered Tests: Active Orders 24 hr Category Date Time Status HAND (MINIMUM 3 VIEWS) Stat Exams 04/07/18 16:48 Taken - Progress Progress: improved Progress Note: 04/07/18 17:05 Will give [place] for pain along with splint Counseled pt/family regarding: diagnosis, rad results - Departure Time of Disposition: 17:06 Departure Disposition: Home Clinical Impression: Contusion of left thumb Condition: Stable Critical Care Time: No Referrals: ADELE LEE [Primary Care Provider] - Instructions: Finger Sprain (DC), Contusion (DC) Additional Instructions: Ice to any sore areas, along with Motrin 800mg every 8 hrs with food and/or Tylenol 1 gm every 4 hrs for pain/swelling Wear splint for next 1-2 days Return for worse pain, swelling, numbness, tingling, weakness or any problems
[2018-04-07] MEDS ORDERED: NORCO 7.5/325 MG TAB PO ONE (16:59)
[2018-04-07] MEDS ORDERED: NORCO 5/325 MG PO ONE (17:28)
[2018-04-07] MEDS ORDERED: NORCO 5/325 MG ONE (17:39)
[2018-04-07 17:59] VITALS: BP 153/89; PULSE 78; O2SAT 96
== END 2018-04-07 18:00 | disposition home or self-care (01) ==
LOC: ED 15:09
DX: S60.012A Contusion of left thumb without damage to nail, initial encounter (principal); M79.645 Pain in left finger(s); W01.0XXA Fall on same level from slipping, tripping and stumbling without subsequent striking against object, initial encounter; Z79.899 Other long term (current) drug therapy
CPT/HCPCS: 73130; 99284; L3908; A9270-GY

== ENCOUNTER 2018-08-20 20:51 | Emergency (ER) | payer OTHER ==
[2018-08-20 21:11] VITALS: BP 148/90; PULSE 73
--- NOTE | 2018-08-20 21:49 | ERPHSYRPT ---
- History of Present Illness Time Seen by Provider: 08/20/18 21:00 Source: patient, family Patient Subjective Stated Complaint: pt is alert and oriented. pt comes in via wheelchair. pt comes in with c/o falling one week ago. pt has large purple, and yellow bruise on her left anterior shoulder, pt also has purple bruising to her right foot with a moderate amount of swellin to the foot and ankle. pt was able to bear weight to get into bed. pt has limited range of motion due to swelling and tenderness. pt denies hitting her head, or loss of consciousness. pt denies using medications or ice to treat ankle. Triage Nursing Assessment: see above Physician History: 58 y/o right handed white female who admits to sig etoh consumption several days a week, including several alcoholic beverages this am, presents one week after a fall out of stationary, parked car. pt and sig other deny head injury but does complain of left shoulder pain, bruising and swelling. additionally, she had right foot and ankle pain, bruising and swelling. pt is able to bear weight on right foot and ankle. pt is also able to move left shoulder but hurts to do so. Occurred: last week Reason for Fall: lost balance, slipped, fell from standing pos Injuries/Pain Location: upper extremity (left shoulder and right foot and ankle) , lower extremity Loss of Consciousness: no loss of consciousness Severity of Pain-Max: moderate Severity of Pain-Current: mild Modifying Factors: Improves With: immobilization (improves), movement (worsens) Associated Symptoms (Fall): extremity injury, No abdominal pain, No back pain, No confusion, No chest pain, No muscle spasms, No nausea, No neck pain, No shortness of breath Allergies/Adverse Reactions: No Known Drug Allergies Allergy (Unverified 08/20/18 21:11) Home Medications: Clonazepam 0.5 mg [Klonopin 0.5 MG] 0.5 mg PO TID 11/26/17 [History] Trazodone HCl 150 mg [Desyrel 150 MG] 1 tab PO HS 11/26/17 [History] Baclofen 10 mg [Lioresal 10 mg] 10 mg PO BID 12/03/17 [History] Gabapentin 300 mg PO TID 01/12/18 [History] Meloxicam [Mobic] 15 mg PO DAILY 01/12/18 [History] Tizanidine HCl 4 mg [Zanaflex 4 MG] 4 mg PO TID 01/12/18 [History] Hx Tetanus, Diphtheria Vaccination/Date Given: Yes Hx Influenza Vaccination/Date Given: No Hx Pneumococcal Vaccination/Date Given: No Immunizations Up to Date: Yes - Review of Systems Constitutional: No Symptoms Eyes: No Symptoms Ears, Nose, & Throat: No Symptoms Respiratory: No Symptoms Cardiac: No Symptoms Abdominal/Gastrointestinal: No Symptoms Genitourinary Symptoms: No Symptoms Musculoskeletal: Injury (left shoulder and right foot and ankle) Neurological: No Symptoms Psychological: No Symptoms Endocrine: No Symptoms Hematologic/Lymphatic: No Symptoms Immunological/Allergic: No Symptoms All Other Systems: Reviewed and Negative - Past Medical History Pertinent Past Medical History: Yes Neurological History: Migraines ENT History: No Pertinent History Cardiac History: No Pertinent History Respiratory History: COPD Endocrine Medical History: No Pertinent History Musculoskeletal History: Arthritis, Degenerative Disk Disease GI Medical History: No Pertinent History History: No Pertinent History Psycho-Social History: Anxiety, Depression Female Reproductive Disorders: No Pertinent History Other Medical History: pain clinic patient, sees Dr. Cardenas for back pain - Past Surgical History Past Surgical History: Yes Neuro Surgical History: No Pertinent History Cardiac: No Pertinent History Respiratory: No Pertinent History Gastrointestinal: No Pertinent History Genitourinary: No Pertinent History Musculoskeletal: No Pertinent History Female Surgical History: Hysterectomy Other Surgical History: partial hysterectomy . - Social History Smoking Status: Current every day smoker How long have you smoked: 45 years Exposure to second hand smoke: Yes Alcohol Use: Chronic Drug Use: none Patient Lives Alone: No - Female History Hx Now: No - Nursing Vital Signs Nursing Vital Signs: Initial Vital Signs Pulse Rate 73 08/20/18 20:51 Respiratory Rate 18 08/20/18 20:51 Blood Pressure 148/90 08/20/18 20:51 O2 Sat by Pulse Oximetry 92 L 08/20/18 20:51 Pain Scale Pain Intensity 8 - Etlan Coma Score Best Eye Response (Etlan): (4) open spontaneously Best Verbal Response (Bjorn): (5) oriented Best Motor Response (Etlan): (6) obeys commands Bjorn Total: 15 - Physical Exam General Appearance: no apparent distress, alert, anxiety Head Injury: no evidence of injury, No active bleeding, No Keith's Sign, No raccoon eyes, No swelling, No tenderness Eye Exam: PERRL/EOMI, eyes nml inspection ENT Exam: airway nml, No evidence of ENT injury, No dental injury Neck Exam: supple, trachea midline, full range of motion, normal alignment, normal inspection, No muscle spasm, No paraspinous muscle tender Respiratory/Chest Exam: chest tenderness, normal breath sounds, respiratory distress, No ecchymosis, No crepitus, No decreased breath sounds Cardiovascular Exam: normal heart sounds, regular rate/rhythm Gastrointestinal Exam: soft, normal bowel sounds, No tenderness, No distention, No mass, No guarding, No rebound Rectal Exam: not done Back Exam: normal inspection, normal range of motion, No CVA tenderness, No vertebral tenderness Extremity Exam: evidence of injury, pain with movement, swelling, tenderness ( and associated old ecchymosis left shoulder and right foot ankle), No deformities, No motor deficit Neurologic Exam: alert, oriented x 3, cooperative, crimper assembler II-XII nml as tested Skin Exam: normal color, warm, ecchymosis (see above) SpO2 Interpretation: borderline oxygenation SpO2: 92 Oxygen Delivery: Room Air - Course Nursing assessment & vital signs reviewed: Yes Ordered Tests: Active Orders 24 hr Category Date Time Status ANKLE (3 VIEWS) Stat Exams 08/20/18 21:28 Completed FOOT (MINIMUM 3 VIEWS) Stat Exams 08/20/18 21:28 Completed SHOULDER Stat Exams 08/20/18 21:29 Completed - Progress Progress: improved, pain not gone completely, re-examined Progress Note: 08/20/18 22:19 left shoulder xray-minimally displaced distal clavicular fx. 08/20/18 22:21 right foot-nondisplaced distal 4th metatarsal fx right ankle- ?small nondisplaced fx medial malleolus Counseled pt/family regarding: diagnosis, need for follow-up, rad results - Departure Time of Disposition: 22:26 Departure Disposition: Home Clinical Impression: Clavicular fracture, Medial malleolar fracture, Metatarsal bone fracture Condition: Stable Critical Care Time: No Referrals: ADELE LEE [Primary Care Provider] - Additional Instructions: ice pack to areas 3 times daily for 3 days. stop alcohol consumption while taking pain medications. follow up with orthopedic surgeon and forest nursery supervisor for further management. wear walking boot and sling until cleared by orthopedic surgeon and forest nursery supervisor for foot and ankle fractures.
--- NOTE | 2018-08-20 22:14 | XRAY ---
Indication: Pain following fall. Comparison: October 10, 2016. 3 views of the left shoulder demonstrates new minimally displaced distal clavicle shaft fracture. No other bony, articular, or soft tissue abnormalities.
--- NOTE | 2018-08-20 22:16 | XRAY ---
Indication: Pain following fall. Comparison: None 3 views of the right ankle demonstrates tiny minimally displaced cortical fracture involving the tip of the medial malleolus with soft tissue swelling. No other bony, articular, or soft tissue abnormalities.
--- NOTE | 2018-08-20 22:19 | XRAY ---
Indication: Pain following fall. Comparison: None 3 nonweightbearing views of the right foot demonstrates nondisplaced non-angulated fracture involving the distal shaft of the 4th metatarsal. No other bony, articular, or soft tissue abnormalities.
[2018-08-20] MEDS ORDERED: PERCOCET TABLET 5/325MG PO STA (22:33)
[2018-08-20] MEDS ORDERED: PERCOCET TABLET 5/325MG ONE (22:50)
[2018-08-20 23:09] VITALS: O2SAT 93
== END 2018-08-20 23:09 | disposition home or self-care (01) ==
LOC: ED 20:51
DX: S42.032A Displaced fracture of lateral end of left clavicle, initial encounter for closed fracture (principal); S82.51XA Displaced fracture of medial malleolus of right tibia, initial encounter for closed fracture; S92.341A Displaced fracture of fourth metatarsal bone, right foot, initial encounter for closed fracture; Z79.899 Other long term (current) drug therapy; W17.89XA Other fall from one level to another, initial encounter
CPT/HCPCS: 73030; 73610; 73630; 99284; L4386; A9270-GY

== ENCOUNTER 2018-12-15 02:11 | Emergency (ER) | payer OTHER ==
--- NOTE | 2018-12-15 02:58 | ERPHSYRPT ---
- History of Present Illness Time Seen by Provider: 12/15/18 02:56 Source: patient, family Exam Limitations: no limitations Patient Subjective Stated Complaint: pt states that last night she felt a pop while laying in bed last night and has been having rt side rib pain since. Triage Nursing Assessment: pt alert and oriented, answers questions approp. pt transfer from wheelchari to stretcher with minimal assist. pt splinting rt side with arm. respirations nonlabored. no bruising or abrasions noted to rt side. Physician History: The patient is a 58-year-old female with her significant other complaining that she fell out of bed 2 nights ago hurting her right ribs. Her significant other was not in the time. He was walking her dog. When he came back in, he found her on the floor. She tells me she was on the edge the bed and slipped off of it. She denies loss of consciousness. She comes in for pain control. She has not contacted her local doctor. She denies shortness of breath. However, it does hurt when she takes a deep breath or moves her trunk. Her past medical history significant for HTN, COPD, chronic back pain, and alcohol dependency. Occurred: days ago (2) Reason for Fall: slipped Injuries/Pain Location: chest (right ribs) Loss of Consciousness: no loss of consciousness Quality: sharpness, stabbing Severity of Pain-Max: severe Severity of Pain-Current: severe Modifying Factors: Improves With: nothing Associated Symptoms (Fall): chest pain Allergies/Adverse Reactions: No Known Drug Allergies Allergy (Unverified 08/20/18 21:11) Home Medications: Clonazepam 0.5 mg [Klonopin 0.5 MG] 0.5 mg PO TID 11/26/17 [History] Trazodone HCl 150 mg [Desyrel 150 MG] 1 tab PO HS 11/26/17 [History] Baclofen 10 mg [Lioresal 10 mg] 10 mg PO BID 12/03/17 [History] Gabapentin 300 mg PO TID 01/12/18 [History] Meloxicam [Mobic] 15 mg PO DAILY 01/12/18 [History] Tizanidine HCl 4 mg [Zanaflex 4 MG] 4 mg PO TID 01/12/18 [History] Hx Tetanus, Diphtheria Vaccination/Date Given: Yes Hx Influenza Vaccination/Date Given: No Hx Pneumococcal Vaccination/Date Given: No Immunizations Up to Date: Yes - Review of Systems Constitutional: No Fever, No Chills Eyes: No Symptoms Ears, Nose, & Throat: No Symptoms Respiratory: No Cough, No Dyspnea Cardiac: Chest Pain Abdominal/Gastrointestinal: No Abdominal Pain, No Nausea, No Vomiting, No Diarrhea Genitourinary Symptoms: No Dysuria Musculoskeletal: Fall, Injury Skin: No Rash Neurological: No Dizziness, No Focal Weakness, No Sensory Changes Psychological: No Symptoms Endocrine: No Symptoms Hematologic/Lymphatic: No Symptoms Immunological/Allergic: No Symptoms All Other Systems: Reviewed and Negative - Past Medical History Pertinent Past Medical History: Yes Neurological History: Migraines ENT History: No Pertinent History Cardiac History: No Pertinent History Respiratory History: COPD Endocrine Medical History: No Pertinent History Musculoskeletal History: Arthritis, Degenerative Disk Disease GI Medical History: No Pertinent History History: No Pertinent History Psycho-Social History: Anxiety, Depression Female Reproductive Disorders: No Pertinent History Other Medical History: pain clinic patient, sees Dr. Cardenas for back pain - Past Surgical History Past Surgical History: Yes Neuro Surgical History: No Pertinent History Cardiac: No Pertinent History Respiratory: No Pertinent History Gastrointestinal: No Pertinent History Genitourinary: No Pertinent History Musculoskeletal: No Pertinent History Female Surgical History: Hysterectomy Other Surgical History: partial hysterectomy . - Social History Smoking Status: Current every day smoker How long have you smoked: 45 years Exposure to second hand smoke: Yes Alcohol Use: Chronic Drug Use: none Patient Lives Alone: No - Nursing Vital Signs Nursing Vital Signs: Initial Vital Signs Temperature 98.3 F 12/15/18 02:20 Respiratory Rate 80 H 12/15/18 02:20 Blood Pressure 156/90 12/15/18 02:20 O2 Sat by Pulse Oximetry 94 L 12/15/18 02:20 Pain Scale Pain Intensity 10 - Bjorn Coma Score Best Eye Response (Bjorn): (4) open spontaneously Best Verbal Response (Bjorn): (5) oriented Best Motor Response (Notrees): (6) obeys commands Notrees Total: 15 - Physical Exam General Appearance: mild distress Head Injury: no evidence of injury Eye Exam: PERRL/EOMI ENT Exam: airway nml Neck Exam: normal inspection, No tenderness Respiratory/Chest Exam: chest tenderness (right lower rib tenderness) Cardiovascular Exam: normal heart sounds, regular rate/rhythm Gastrointestinal Exam: soft, No tenderness, No distention, No guarding, No ecchymosis Rectal Exam: not done Back Exam: normal inspection, No vertebral tenderness Extremity Exam: normal inspection, normal range of motion, pelvis stable, No deformities Neurologic Exam: alert, oriented x 3, cooperative, sensation nml, No motor deficits Skin Exam: normal color, warm, dry SpO2 Interpretation: normal SpO2: 94 O2 Delivery: Room Air - Radiology Exams Chest X-ray Interpretation: Interpreted by me, No Pneumothorax, Displaced Fracture ( right 7 rib) Right Ribs X-ray Interpretation: Interpreted by me, Displaced Fracture (right 7 rib) Ordered Tests: Active Orders 24 hr Category Date Time Status CHEST 2 VIEWS (PA AND LAT) Stat Exams 12/15/18 02:59 Ordered RIBS UNILATERAL Stat Exams 12/15/18 02:59 Ordered - Progress Progress: improved Counseled pt/family regarding: rad results - Departure Time of Disposition: 03:59 Departure Disposition: Home Clinical Impression: Right rib fracture Condition: Stable Critical Care Time: No Referrals: DOCTOR,NO FAMILY [Primary Care Provider] - Additional Instructions: You have a broken rib on the right side. It will take 6-8 weeks to heal. You were given Toradol 60 mg by IM in the ER. Take Hamilton one tablet every 6 hours as needed for pain. Follow-up with your primary medical doctor in one to 2 days. Prescriptions: Hydrocodone/APAP 5-325 Tab^^^ [Hamilton 5-325 Tablet^^^] 1 tab PO Q6HPRN PRN #10 tablet MDD 6 PRN Reason: Pain
[2018-12-15] MEDS ORDERED: TORAdol 30 mg Injection IM ONE (03:57)
[2018-12-15] MEDS ORDERED: NORCO 5/325 MG PO ONE (03:57)
[2018-12-15] MEDS ORDERED: TORAdol 30 mg Injection ONE (04:00)
[2018-12-15] MEDS ORDERED: NORCO 5/325 MG ONE (04:01)
[2018-12-15 04:09] VITALS: BP 175/94; PULSE 76; O2SAT 95
--- NOTE | 2018-12-15 09:10 | XRAY ---
Indication: Right chest pain following fall 2 days ago. Comparison: March 01, 2018. AP/lateral chest demonstrate normal heart and lungs. Bony thorax demonstrates minimally displaced lateral right 7 acute rib fracture and healing nondisplaced distal left clavicle fracture.
--- NOTE | 2018-12-15 09:13 | XRAY ---
Indication: Pain following fall 2 days ago. Comparison: None 2 views of the right ribs demonstrates acute nondisplaced posterior lateral 7 rib fracture. Also old anterolateral 6 rib fracture, right lung base calcified granuloma, and heavy scattered aortic calcifications. No other bony, articular, or soft tissue abnormalities.
== END 2018-12-15 04:15 | disposition home or self-care (01) ==
LOC: ED 02:11
DX: S22.31XA Fracture of one rib, right side, initial encounter for closed fracture (principal); F41.8 Other specified anxiety disorders; W06.XXXA Fall from bed, initial encounter
CPT/HCPCS: 71046; 71100; 96372; 99284; J1885; A9270-GY

== ENCOUNTER 2021-09-17 20:25 | Emergency (ER) | payer OTHER ==
--- NOTE | 2021-09-17 20:42 | ERPHSYRPT ---
- History of Present Illness Time Seen by Provider: 09/17/21 20:41 Source: patient Exam Limitations: no limitations Physician History: This is a 61-year-old white female who has a history of alcohol dependency drinking alcohol every day and walks with a walker who states that she fell yesterday hitting her head and neck and today she has a headache and neck pain. Patient also has a history of chronic migraine headaches, degenerative joint disease in her spine, anxiety and depression issues. The fall occurred approximately 24 hours ago. Patient has no other complaints of any pain issues. Timing/Duration: yesterday Quality: aching Head Pain Location: occipital Severity of Pain-Max: mild Severity of Pain-Current: mild Recent Head Trauma: chronic headaches Associated Symptoms: denies symptoms Previous symptoms: same symptoms as today Allergies/Adverse Reactions: No Known Drug Allergies Allergy (Verified 09/17/21 20:39) Home Medications: Clonazepam 0.5 mg [Klonopin 0.5 MG] 0.5 mg PO TID 11/26/17 [History] Trazodone HCl 150 mg [Desyrel 150 MG] 1 tab PO HS 11/26/17 [History] Baclofen 10 mg [Lioresal 10 mg] 10 mg PO BID 12/03/17 [History] Gabapentin 300 mg PO TID 01/12/18 [History] Meloxicam [Mobic] 15 mg PO DAILY 01/12/18 [History] Tizanidine HCl 4 mg [Zanaflex 4 MG] 4 mg PO TID 01/12/18 [History] Hx Tetanus, Diphtheria Vaccination/Date Given: Yes Hx Influenza Vaccination/Date Given: No Hx Pneumococcal Vaccination/Date Given: No Travel Risk - International Travel Have you traveled outside of the country in past 3 weeks: No - Coronavirus Screening Are you exhibiting any of the following symptoms?: No Close contact with a COVID-19 positive Pt in past 14-21 Days: No - Review of Systems Constitutional: No Symptoms Eyes: No Symptoms Ears, Nose, & Throat: No Symptoms Respiratory: No Symptoms Cardiac: No Symptoms Abdominal/Gastrointestinal: No Symptoms Genitourinary Symptoms: No Symptoms Musculoskeletal: Neck Pain, Fall Skin: No Symptoms Neurological: Headache Psychological: Alcohol Abuse, Anxiety, Depression Endocrine: No Symptoms Hematologic/Lymphatic: No Symptoms Immunological/Allergic: No Symptoms All Other Systems: Reviewed and Negative - Past Medical History Pertinent Past Medical History: Yes Neurological History: Migraines ENT History: No Pertinent History Cardiac History: No Pertinent History Respiratory History: COPD Endocrine Medical History: No Pertinent History Musculoskeletal History: Arthritis, Degenerative Disk Disease GI Medical History: No Pertinent History History: No Pertinent History Psycho-Social History: Anxiety, Depression Female Reproductive Disorders: No Pertinent History Other Medical History: pain clinic patient, sees Dr. Cardenas for back pain - Past Surgical History Past Surgical History: Yes Neuro Surgical History: No Pertinent History Cardiac: No Pertinent History Respiratory: No Pertinent History Gastrointestinal: No Pertinent History Genitourinary: No Pertinent History Musculoskeletal: No Pertinent History Female Surgical History: Hysterectomy Other Surgical History: partial hysterectomy . - Social History Smoking Status: Current every day smoker How long have you smoked: 45 years Exposure to second hand smoke: Yes Alcohol Use: Chronic Drug Use: none Patient Lives Alone: No - Nursing Vital Signs Nursing Vital Signs: Initial Vital Signs Temperature 98.5 F 09/17/21 20:39 Pulse Rate 96 H 09/17/21 20:39 Respiratory Rate 18 09/17/21 20:39 Blood Pressure 177/88 09/17/21 20:39 O2 Sat by Pulse Oximetry 98 09/17/21 20:39 Pain Scale Pain Intensity 10 - Physical Exam General Appearance: no apparent distress, alert, anxiety Eye Exam: PERRL/EOMI, eyes nml inspection Ears, Nose, Throat Exam: normal ENT inspection, moist mucous membranes Neck Exam: normal inspection, supple, full range of motion Respiratory Exam: normal breath sounds, lungs clear, airway intact, No chest tenderness, No respiratory distress Cardiovascular Exam: regular rate/rhythm, normal heart sounds, normal peripheral pulses Gastrointestinal/Abdominal Exam: soft, normal bowel sounds, No tenderness Back Exam: normal inspection, normal range of motion, No CVA tenderness, No vertebral tenderness Extremity Exam: normal inspection, normal range of motion, pelvis stable Mental Status Exam: alert, oriented x 3, 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 Exam: normal hearing, normal speech, PERRL, tongue midline Coordination/Gait Exam: normal finger to nose Motor/Sensory Exam: no motor deficit, no sensory deficit, no pronator drift Skin Exam: normal color, warm, dry Lymphatic Exam: No adenopathy SpO2 Interpretation: normal O2 Delivery: Room Air Ordered Tests: Active Orders 24 hr Category Date Time Status CERVICAL SPINE WO CONTRAST [CT] Stat Exams 09/17/21 21:06 Taken HEAD WITHOUT CONTRAST [CT] Stat Exams 09/17/21 21:06 Taken - Progress Progress: improved Air Movement: good Progress Note: 09/17/21 21:46 CAT scan of the head without contrast shows no acute intracranial abnormality. CAT scan of the cervical spine without contrast shows no acute fracture or subluxation. There is stable DJD. Blood Culture(s) Obtained: No Antibiotics given: No Counseled pt/family regarding: diagnosis, need for follow-up, rad results - Departure Departure Disposition: Home Clinical Impression: Fall, Headache, Neck pain Condition: Stable Critical Care Time: No Referrals: LAWANDA MERAZ [Primary Care Provider] - Follow up/PCP as directed Additional Instructions: Continue medication as prescribed. Follow-up with your primary care physician for persistent symptoms.
[2021-09-17 21:44] VITALS: BP 114/70; PULSE 82; O2SAT 96
--- NOTE | 2021-09-18 08:39 | XRAY ---
Indication: Pain following fall. Loss of consciousness. Multiple contiguous axial images obtained through the head without contrast. Comparison: February 22, 2021. Again age-appropriate global atrophy. No acute intracranial hemorrhage, abnormal extra-axial fluid collection, or mass effect. Fourth ventricle is midline without hydrocephalus. Nash-white matter differentiation preserved. Bony calvarium intact. Visualized paranasal sinuses and mastoid air cells are clear. Impression: Continued negative CT head without contrast exam.
--- NOTE | 2021-09-18 08:41 | XRAY ---
Indication: Pain following fall. Multiple contiguous ex images obtained through the cervical spine. Sagittal and coronal reformatted images obtained. Comparison: Cervical radiograph February 22, 2021. Osseous structures remain demineralized. Axial images negative for acute fracture, suspicious bony lesions, or spinal canal stenosis. Again minimal C5-C7 degenerative endplate spurring. Mild multilevel bilateral degenerative facet hypertrophy. Sagittal and coronal reformatted images demonstrates normal alignment with minimal C5-C6 disc space narrowing. No acute compression fracture, subluxation, or jumped facet. Normal appearing craniocervical junction. Visualized noncontrasted soft tissues again demonstrates moderate bilateral carotid calcifications. Lung apices are clear. Impression: 1. Continued negative for acute fracture/subluxation. 2. Again osteopenia and multilevel degenerative changes.
== END 2021-09-17 21:57 | disposition home or self-care (01) ==
LOC: ED 20:25
DX: M54.2 Cervicalgia (principal); R51.9 Headache, unspecified; W19.XXXA Unspecified fall, initial encounter; F10.20 Alcohol dependence, uncomplicated; Z72.0 Tobacco use
CPT/HCPCS: 70450; 72125; 99283

== ENCOUNTER 2022-02-15 22:34 | Emergency (ER) | payer OTHER ==
[2022-02-15 23:42] VITALS: O2SAT 99
--- NOTE | 2022-02-16 00:07 | ERPHSYRPT ---
- History of Present Illness Time Seen by Provider: 02/16/22 00:02 Source: patient, family, EMS Exam Limitations: no limitations Patient Subjective Stated Complaint: pt states she got out of her chair at home and fell hurting her rt ankle. denies hitting her head. denies pain elsewhere Triage Nursing Assessment: pt alert and oriented, answers questions approp. slurred speech, pt states is her normal. pt arrive per ambulance and transfers to stretcher with assist of 3. respirations nonlabored. swelling noted to top of rt foot and rt lateral ankle. pedal pulse wnl. Physician History: pt tripped when lights went out and could not walk on right foot afterwards. did not strike other areas. but has tenderness at prox tib also and fib. NV intact. Nontender chest abd skull/head and entire spine full ROM all other ext without pain. No Hx of blood thinners Method of Injury: fell, twisted Occurred: just prior to arrival Quality: sharpness, throbbing Severity of Pain-Max: moderate Severity of Pain-Current: moderate Lower Extremities Pain: leg: right, foot: right, ankle: right Modifying Factors: Improves With: immobilization, movement Associated Symptoms: unable to bear weight Allergies/Adverse Reactions: No Known Drug Allergies Allergy (Verified 02/15/22 22:50) Home Medications: Clonazepam 0.5 mg [Klonopin 0.5 MG] 0.5 mg PO TID 11/26/17 [History] Trazodone HCl 150 mg [Desyrel 150 MG] 1 tab PO HS 11/26/17 [History] Baclofen 10 mg [Lioresal 10 mg] 10 mg PO BID 12/03/17 [History] Gabapentin 300 mg PO TID 01/12/18 [History] Meloxicam [Mobic] 15 mg PO DAILY 01/12/18 [History] Tizanidine HCl 4 mg [Zanaflex 4 MG] 4 mg PO TID 01/12/18 [History] Hx Tetanus, Diphtheria Vaccination/Date Given: Yes Hx Influenza Vaccination/Date Given: No Hx Pneumococcal Vaccination/Date Given: No Immunizations Up to Date: Yes Travel Risk - International Travel Have you traveled outside of the country in past 3 weeks: No - Coronavirus Screening Are you exhibiting any of the following symptoms?: No Close contact with a COVID-19 positive Pt in past 14-21 Days: No - Vaccine Status Have you recieved a Covid-19 vaccination: No - Review of Systems Constitutional: No Fever, No Chills, No Malaise, No Weakness Eyes: No Symptoms Ears, Nose, & Throat: No Symptoms Respiratory: No Cough, No Dyspnea Cardiac: No Chest Pain, No Edema, No Syncope Abdominal/Gastrointestinal: No Abdominal Pain, No Nausea, No Vomiting, No Diarrhea Genitourinary Symptoms: No Dysuria Musculoskeletal: Fall, Joint Pain, Joint Swelling, No Back Pain, No Neck Pain Skin: No Rash Neurological: No Dizziness, No Focal Weakness, No Sensory Changes Psychological: No Symptoms Endocrine: No Symptoms, Excessive Sweating Immunological/Allergic: No Symptoms All Other Systems: Reviewed and Negative - Past Medical History Pertinent Past Medical History: Yes Neurological History: Migraines ENT History: No Pertinent History Cardiac History: Hypertension Respiratory History: COPD Endocrine Medical History: No Pertinent History Musculoskeletal History: Arthritis, Degenerative Disk Disease GI Medical History: No Pertinent History History: No Pertinent History Psycho-Social History: Anxiety, Depression Female Reproductive Disorders: No Pertinent History Other Medical History: pain clinic patient, sees Dr. Cardenas for back pain - Past Surgical History Past Surgical History: Yes Neuro Surgical History: No Pertinent History Cardiac: No Pertinent History Respiratory: No Pertinent History Gastrointestinal: No Pertinent History Genitourinary: No Pertinent History Musculoskeletal: No Pertinent History Female Surgical History: Hysterectomy Other Surgical History: partial hysterectomy . - Social History Smoking Status: Current every day smoker How long have you smoked: 45 years Exposure to second hand smoke: Yes Alcohol Use: Chronic Drug Use: none Patient Lives Alone: No - Nursing Vital Signs Nursing Vital Signs: Initial Vital Signs Temperature 96.7 F 02/15/22 22:36 Pulse Rate 79 02/15/22 22:36 Respiratory Rate 16 02/15/22 22:36 Blood Pressure 163/95 02/15/22 22:36 O2 Sat by Pulse Oximetry 98 02/15/22 22:36 Pain Scale Pain Intensity 8 - Physical Exam General Appearance: no apparent distress, alert Eyes, Ears, Nose, Throat Exam: moist mucous membranes Neck Exam: non-tender, supple Cardiovascular/Respiratory Exam: chest non-tender, normal breath sounds, regular rate/rhythm, no respiratory distress Gastrointestinal/Abdominal Exam: non-tender, guarding Back Exam: normal inspection, normal range of motion, No vertebral tenderness, No point tenderness Hips Exam: bilateral: non-tender, normal inspection, normal range of motion, no evidence of injury Legs Exam: right leg: bone tenderness, pain, soft tissue tenderness, left leg: non-tender, normal inspection, normal range of motion, no evidence of injury Knees Exam: bilateral knee: non-tender, normal inspection, normal range of motion, no evidence of injury Ankle Exam: right ankle: bone tenderness, limited range of motion, pain, soft tissue tenderness, swelling, left ankle: non-tender, normal inspection, normal range of motion, no evidence of injury Foot Exam: right foot: bone tenderness, pain, soft tissue tenderness, swelling, left foot: non-tender, normal inspection, normal range of motion, no evidence of injury DTR - Lower Extremities Exam: knee (R): 2+, knee (L): 2+, ankle (R): 2+, ankle (L): 2+ Neuro/Tendon Exam: normal sensation, normal motor functions Mental Status Exam: alert, oriented x 3, cooperative Skin Exam: normal color, warm, dry SpO2 Interpretation: normal SpO2: 99 O2 Delivery: Room Air - Course Nursing assessment & vital signs reviewed: Yes - Radiology Exams Right Lower Leg X-ray Interpretation: Reviewed by me, Other (min displaced fx unknown age right prox fibula) Right Ankle X-ray Interpretation: Reviewed by me, Non-displaced Fracture (nondisplace fx unknown age right 3rd metatarsal and distal fibula. ) Ordered Tests: Active Orders 24 hr Category Date Time Status Splint STAT Care 02/16/22 00:44 Active ANKLE (3 VIEWS) Stat Exams 02/15/22 23:37 Taken LOWER LEG Stat Exams 02/16/22 00:11 Taken Medication Summary Discontinued Medications Generic Name Dose Route Start Last Admin Trade Name Freq PRN Reason Stop Dose Admin Hydrocodone Bitart/Acetaminophen 1 tab 02/16/22 00:10 02/16/22 00:19 Hydrocodone/Apap 5/325 Mg Tablet PO 02/16/22 00:11 1 tab STAT ONE Administration Hydrocodone Bitart/Acetaminophen Confirm 02/16/22 00:14 Hydrocodone/Apap 5/325 Mg Tablet Administered 02/16/22 00:15 Dose 1 tab .ROUTE .STK-MED ONE Ondansetron HCl 4 mg 02/16/22 00:17 02/16/22 00:18 Zofran 4 Mg/Udtablet Orally Disintegrating PO 02/16/22 00:18 4 mg STAT ONE Administration Ondansetron HCl Confirm 02/16/22 00:18 Zofran 4 Mg/Udtablet Orally Disintegrating Administered 02/16/22 00:19 Dose 4 mg .ROUTE .STK-MED ONE Ondansetron HCl 4 mg 02/16/22 02:30 02/16/22 02:39 Zofran 4 Mg/Udtablet Orally Disintegrating PO 02/16/22 02:31 4 mg STAT ONE Administration Ondansetron HCl Confirm 02/16/22 02:37 Zofran 4 Mg/Udtablet Orally Disintegrating Administered 02/16/22 02:38 Dose 4 mg .ROUTE .STK-MED ONE Oxycodone/Acetaminophen 1 tab 02/16/22 01:09 02/16/22 01:24 Oxycodone Hcl/Apap 5 Mg/325 Mg Tablet PO 02/16/22 01:10 1 tab STAT STA Administration Oxycodone/Acetaminophen Confirm 02/16/22 01:22 Oxycodone / Apap 10/325 Mg 1 Tablet Administered 02/16/22 01:23 Dose 1 tab .ROUTE .STK-MED ONE Oxycodone/Acetaminophen Confirm 02/16/22 01:24 Oxycodone Hcl/Apap 5 Mg/325 Mg Tablet Administered 02/16/22 01:25 Dose 1 tab .ROUTE .STK-MED ONE Oxycodone/Acetaminophen 2 tab 02/16/22 02:29 02/16/22 02:44 Oxycodone Hcl/Apap 5 Mg/325 Mg Tablet PO 02/16/22 02:30 2 tab SENT HOME W/ PATIENT STA Administration Oxycodone/Acetaminophen 1 tab 02/16/22 02:30 02/16/22 02:39 Oxycodone Hcl/Apap 5 Mg/325 Mg Tablet PO 02/16/22 02:31 1 tab STAT STA Administration Oxycodone/Acetaminophen Confirm 02/16/22 02:37 Oxycodone Hcl/Apap 5 Mg/325 Mg Tablet Administered 02/16/22 02:38 Dose 3 tab .ROUTE .STK-MED ONE - Progress Progress: improved, re-examined Progress Note: 02/16/22 02:48 pt has some pain relief after meds, and wishes discharge to home with PMD f/u rather than further Tx/w/u or observation in [facility], and has the mental status and capacity to make that choice. pt advised to take care with pain meds due to potential side effects. Counseled pt/family regarding: diagnosis, need for follow-up, rad results - Departure Departure Disposition: Home Clinical Impression: Fracture of third metatarsal bone of right foot, fracture right distal fibula, fracture right proximal fibula, Fall Condition: Good Critical Care Time: No Referrals: LAWANDA MREAZ [Primary Care Provider] - Follow up/PCP as directed Instructions: Ankle Fracture (DC), Foot Fracture (DC), Foot Avulsion Fracture (DC) Additional Instructions: follow-up with Leonel Campbell Thursday for definitive therapy of hte foot and leg. return meantime if not improving or any concerns. Use walker .
[2022-02-16] MEDS ORDERED: NORCO 5/325 MG PO ONE (00:10)
[2022-02-16] MEDS ORDERED: NORCO 5/325 MG ONE (00:14)
[2022-02-16] MEDS ORDERED: ZOFRAN ODT 4 MG PO ONE ×2 (00:17→02:30)
[2022-02-16] MEDS ORDERED: ZOFRAN ODT 4 MG ONE ×2 (00:18→02:37)
[2022-02-16] MEDS ORDERED: PERCOCET TABLET 5/325MG PO STA ×3 (01:09→02:30)
[2022-02-16] MEDS ORDERED: OXYCODONE-ACETAMINOPHEN 10-325 ONE (01:22)
[2022-02-16] MEDS ORDERED: PERCOCET TABLET 5/325MG ONE ×2 (01:24→02:37)
[2022-02-16 02:50] VITALS: PULSE 72
[2022-02-16 03:05] VITALS: BP 148/87
--- NOTE | 2022-02-16 07:30 | XRAY ---
Indication: Pain and swelling following fall. Comparison: None 2 view right lower leg demonstrates osteopenia, old proximal fibula fracture, and scattered vascular calcifications. No other bony, articular, or soft tissue abnormalities.
--- NOTE | 2022-02-16 07:34 | XRAY ---
Indication: Pain and swelling following fall. Comparison: None 3 view right ankle demonstrates lateral soft tissue swelling, osteopenia, old lateral malleolus/distal 4th metatarsal fractures, tiny medial malleolus tip/1st tarsometatarsal heterotopic ossifications, and tiny spurring base 3rd metatarsal. No other bony, articular, or soft tissue abnormalities.
== END 2022-02-16 03:21 | disposition home or self-care (01) ==
LOC: ED 22:34
DX: S92.331A Displaced fracture of third metatarsal bone, right foot, initial encounter for closed fracture (principal); S82.831A Other fracture of upper and lower end of right fibula, initial encounter for closed fracture; W01.0XXA Fall on same level from slipping, tripping and stumbling without subsequent striking against object, initial encounter; M79.661 Pain in right lower leg; M25.571 Pain in right ankle and joints of right foot; I10 Essential (primary) hypertension; J44.9 Chronic obstructive pulmonary disease, unspecified; Z72.0 Tobacco use; Z79.899 Other long term (current) drug therapy
CPT/HCPCS: 73590; 73610; 99284; L4386; Q0162; A9270-GY

== ENCOUNTER 2022-04-18 08:34 | Day surgery (SDC) | payer OTHER ==
[~2022-04-18 08:34] MED LIST: Lactated Ringers 1,000 ML IV ONE; XYLOCAINE 1% HCL 20 ML MDV ONE
[2022-04-18] MEDS ORDERED: Lactated Ringers 1,000 ML IV ONE (08:43)
[2022-04-18] MEDS ORDERED: Lactated Ringers 1,000 ML IV SCH (09:00)
[2022-04-18] MEDS ORDERED: CEFAZOLIN 2 GM-D5W BAG** 2 GM/50 ML ML IV SCH (09:00)
[2022-04-18 11:29] LABS: ANION GAP 15.8 MEQ/L (5-15); BLOOD UREA NITROGEN 7 mg/dL (7-17); CHLORIDE 92 mmol/L (98-107); Calcium 9.7 mg/dL (8.4-10.2); Carbon Dioxide 30 mmol/L (22-30); Creatinine 1 0.69 mg/dL (0.52-1.04); EST GLOMERULAR FILTRATION RATE > 60.0 ML/MIN; Glucose 82 mg/dL (74-106); Potassium 5.7 mmol/L (3.5-5.1); SODIUM 133 mmol/L (137-145)
[2022-04-18] MEDS ORDERED: Zofran 4 MG/2 ML VIAL ONE (11:58)
[2022-04-18] MEDS ORDERED: Decadron 4 MG INJ ONE (11:58)
[2022-04-18] MEDS ORDERED: Xylocaine-Mpf 2% 5 Ml Vial ONE (11:58)
[2022-04-18] MEDS ORDERED: DIPRIVAN 200 MG/20 ML IV ONE (11:58)
[2022-04-18] MEDS ORDERED: SUBLIMAZE 100 MCG/2 ML ONE ×3 (11:59→15:49)
[2022-04-18] MEDS ORDERED: Zemuron 100 MG/10 ML ONE ×2 (12:00→14:27)
[2022-04-18] MEDS ORDERED: OFIRMEV 100 ML IV ONE (12:01)
[2022-04-18] MEDS ORDERED: Pre-Attached Lta Kit TP ONE (12:01)
[2022-04-18] MEDS ORDERED: PHENYLEPHRINE HCL ONE (12:33)
[2022-04-18] MEDS ORDERED: ATROPINE SULFATE 1MG ONE (12:55)
[2022-04-18] MEDS ORDERED: Ephedrine Sulfate 50 MG/ML ONE (12:57)
[2022-04-18] MEDS ORDERED: APRESOLINE 20 MG/ML INJ ONE (14:06)
[2022-04-18] MEDS ORDERED: Ketamine HCl 50 MG/ML ONE (14:10)
[2022-04-18] MEDS ORDERED: LOPRESSOR INJECTION IV ONE (14:21)
[2022-04-18] MEDS ORDERED: BRIDION 200MG/2ML IV ONE (14:53)
[2022-04-18] MEDS ORDERED: Hydromorphone 1 mg/ml Injection ONE (15:24)
[2022-04-18 16:32] VITALS: BP 163/85; PULSE 73; O2SAT 98
--- NOTE | 2022-04-18 22:19 | XRAY ---
Exam: Intraoperative C-arm images of the right foot from 04/18/2022. Comparison: 3 view right foot radiograph series from 04/08/2022. Indication: 62-year-old female for open reduction and internal fixation of second and third metatarsals with primary arthrodesis of second and third metatarsal-tarsal junctions. Findings: 3 minutes and 48 seconds of intraoperative fluoroscopy time was utilized. 9 C-arm images are submitted for evaluation. On the image marked #1, there is a circular radiolucency projected over the posterior aspect of the calcaneus on the lateral C-arm image. This is not seen on the lateral image of the right foot from 04/08/2022. Correlate clinically. A posterior orthopedic plate spans the middle cuneiform-second metatarsal joint with 3 short screws within the middle cuneiform and 3 short screws within the proximal right second metatarsal. I again see the fracture of the proximal right second metatarsal. In addition, a similar posterior metallic plate spans across the lateral cuneiform-third metatarsal joint and is fixed by 3 short screws to the lateral cuneiform bone and 3 short screws to the proximal right third metatarsal. The oblique fracture at the base of the right third metatarsal is again seen. The known fracture of the base of the right fourth metatarsal is not as well-seen on the C-arm images as compared to the radiographs from 04/08/2022. Incidentally, on the last lateral image marked #9, there is a short linear metallic density projected over the dorsal soft tissues of the distal right hindfoot. This is located dorsal to the proximal end of the orthopedic sideplates. Correlate clinically. Impression: 1. Status post open reduction and internal fixation of right second and third proximal metatarsals with primary arthrodesis of the second and third tarsal-metatarsal junctions, as discussed. See above.
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
== END 2022-04-18 16:55 | disposition home or self-care (01) ==
LOC: SDC 08:34
PROVIDERS: ATTEND Podiatrist Foot & Ankle Surgery
DX: S92.321A Displaced fracture of second metatarsal bone, right foot, initial encounter for closed fracture (principal); S92.331A Displaced fracture of third metatarsal bone, right foot, initial encounter for closed fracture; S92.341A Displaced fracture of fourth metatarsal bone, right foot, initial encounter for closed fracture; M79.671 Pain in right foot; M25.571 Pain in right ankle and joints of right foot
CPT/HCPCS: 20900; 28730; 36415; 73620; 76000; 80048; 93005; J0360; J0461; J0690; J1100; J1170; J2370; J2405; J2704; J3010

== ENCOUNTER 2024-01-24 21:16 | Emergency (ER) | payer MEDICARE ==
--- NOTE | 2024-01-24 21:24 | ERPHSYRPT ---
- History of Present Illness Time Seen by Provider: 01/24/24 21:24 Source: patient, family Exam Limitations: no limitations Physician History: pt has fever says she has chronic headaches and this one is worse and she thinks she has had fever today. Nausea, no vomiting, Diarrhea , no abd pain. no trauma no blood thinners abd is nontender without peritoneal signs. Neuro is without deficits. fundi benign. 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 Associated Symptoms: headache Allergies/Adverse Reactions: No Known Drug Allergies Allergy (Verified 01/24/24 21:23) Home Medications: Trazodone HCl 150 mg [Desyrel 150 MG] 1 tab PO HS 11/26/17 [History] lisinopriL [Zestril] 2.5 mg PO BID 04/17/22 [History] Hx Tetanus, Diphtheria Vaccination/Date Given: Yes Hx Influenza Vaccination/Date Given: No Hx Pneumococcal Vaccination/Date Given: No - Review of Systems Constitutional: Fever (subjective), No Chills Eyes: No Symptoms Ears, Nose, & Throat: No Symptoms Respiratory: No Cough, No Dyspnea Cardiac: No Chest Pain, No Edema, No Syncope Abdominal/Gastrointestinal: Nausea, Diarrhea, No Abdominal Pain, No Vomiting Genitourinary Symptoms: No Dysuria Musculoskeletal: No Back Pain, No Neck Pain, No Fall Skin: No Rash Neurological: Headache, No Dizziness, No Focal Weakness, No Sensory Changes Psychological: No Symptoms Endocrine: No Symptoms Hematologic/Lymphatic: No Symptoms Immunological/Allergic: No Symptoms All Other Systems: Reviewed and Negative - Past Medical History Pertinent Past Medical History: Yes Neurological History: Migraines ENT History: No Pertinent History Cardiac History: Hypertension Respiratory History: COPD Endocrine Medical History: No Pertinent History Musculoskeletal History: Arthritis, Degenerative Disk Disease GI Medical History: No Pertinent History History: No Pertinent History Psycho-Social History: Anxiety, Depression Female Reproductive Disorders: No Pertinent History 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 - Social History Smoking Status: Current every day smoker How long have you smoked: 45 years Exposure to second hand smoke: Yes Alcohol Use: Chronic Drug Use: none Patient Lives Alone: No - Nursing Vital Signs Nursing Vital Signs: Initial Vital Signs Temperature 96.5 F 01/24/24 21:28 Pulse Rate 83 01/24/24 21:28 Respiratory Rate 21 01/24/24 21:28 Blood Pressure 160/83 01/24/24 21:28 O2 Sat by Pulse Oximetry 97 01/24/24 21:28 Pain Scale Pain Intensity 0 - Physical Exam General Appearance: no apparent distress, alert Eye Exam: PERRL/EOMI ENT Exam: normal ENT inspection, No pharyngeal erythema, No tonsillar exudate Neck Exam: supple, full range of motion, No meningismus Respiratory Exam: normal breath sounds, lungs clear, no respiratory distress Cardiovascular/Chest Exam: normal heart sounds, regular rate/rhythm, No murmur, No edema Gastrointestinal/Abdominal Exam: soft, non tender, no distention Pelvic Exam: deferred Rectal Exam: deferred Extremity Exam: non-tender, normal range of motion, normal inspection, normal capillary refill Neurologic Exam: alert, oriented x 3, cooperative, manager water II-XII nml as tested, normal mood/affect, sensation nml, No motor deficits Skin Exam: normal color, warm, dry, No rash SpO2 Interpretation: normal SpO2: 97 O2 Delivery: Room Air - Course Nursing assessment & vital signs reviewed: Yes - Radiology Exams Chest X-ray Interpretation: Reviewed by me, No Pneumothorax, Infiltrates (mild interstitial and right nodule) - CT Exams Head CT Interpretation: Tele-radiologist Report, No/Intracranial Hemorrhag, Other (old CVA and white matter ischemic changes) Cervical Spine CT Interpretation: No Fracture, Other (DDD/DJD) Ordered Tests: Active Orders 24 hr Category Date Time Status EKG-ER Only STAT Care 01/24/24 21:46 Active IV Insertion STAT Care 01/24/24 21:46 Active CERVICAL SPINE WO CONTRAST [CT] Stat Exams 01/25/24 00:59 Completed CHEST 1 VIEW (PORTABLE) Stat Exams 01/24/24 21:47 Taken HEAD WITHOUT CONTRAST [CT] Stat Exams 01/24/24 21:49 Completed ACETAMINOPHEN Stat Lab 01/24/24 21:55 Completed CBC W DIFF Stat Lab 01/24/24 21:55 Completed CMP Stat Lab 01/24/24 21:55 Completed ETHYL ALCOHOL Stat Lab 01/24/24 21:55 Completed Lactic Acid Stat Lab 01/24/24 21:53 Completed Lactic Acid Stat Lab 01/24/24 23:59 Completed MG [MAGNESIUM] Stat Lab 01/25/24 01:34 Completed SALICYLATE Stat Lab 01/24/24 21:55 Completed TROPONIN Q4H Lab 01/24/24 21:55 Completed TROPONIN Q4H Lab 01/25/24 01:34 Completed TROPONIN Q4H Lab 01/25/24 06:00 Ordered TSH [TSH, 3RD Generation] Stat Lab 01/25/24 01:34 Completed UA W/RFX UR CULTURE Stat Lab 01/25/24 00:02 Completed Medication Summary Generic Name Dose Route Start Last Admin Trade Name Freq PRN Reason Stop Dose Admin Magnesium Sulfate/Dextrose 100 mls @ 100 mls/hr 01/25/24 01:00 01/25/24 01:15 Magnesium 1 Gm / 100 Ml D5w IV 01/25/24 02:59 100 mls/hr Q1H LITA Administration Discontinued Medications Generic Name Dose Route Start Last Admin Trade Name Freq PRN Reason Stop Dose Admin Diphenhydramine HCl 25 mg 01/24/24 21:46 01/24/24 22:32 Diphenhydramine Hcl 50 Mg/Ml Vial IV 01/24/24 21:47 25 mg STAT ONE Administration Diphenhydramine HCl Confirm 01/24/24 21:54 Diphenhydramine Hcl 50 Mg/Ml Vial Administered 01/24/24 21:55 Dose 50 mg .ROUTE .STK-MED ONE Hydromorphone HCl 0.5 mg 01/25/24 02:07 01/25/24 02:11 Hydromorphone 1 Mg/1ml Inj IM 01/25/24 02:08 0.5 mg STAT ONE Administration Hydromorphone HCl Confirm 01/25/24 02:09 Hydromorphone 1 Mg/1ml Inj Administered 01/25/24 02:10 Dose 1 mg .ROUTE .STK-MED ONE Sodium Chloride 1,000 mls @ 999 mls/hr 01/24/24 21:46 01/24/24 23:59 Sodium Chloride 0.9% 1000 Ml IV 01/24/24 22:46 Infused .Q1H1M STA Infusion Sodium Chloride Confirm 01/24/24 21:54 Sodium Chloride 0.9% 1000 Ml Administered 01/24/24 21:55 Dose 1,000 mls @ ud .ROUTE .STK-MED ONE Ketorolac Tromethamine 30 mg 01/25/24 01:00 01/25/24 01:15 Ketorolac Tromethamine 30 Mg/Ml Inj IV 01/25/24 01:01 30 mg STAT ONE Administration Ketorolac Tromethamine Confirm 01/25/24 01:12 Ketorolac Tromethamine 30 Mg/Ml Inj Administered 01/25/24 01:13 Dose 30 mg .ROUTE .STK-MED ONE Metoclopramide HCl 10 mg 01/25/24 01:00 01/25/24 01:16 Metoclopramide Hcl 10 Mg/2 Ml Vial IV 01/25/24 01:01 10 mg STAT ONE Administration Metoclopramide HCl Confirm 01/25/24 01:12 Metoclopramide Hcl 10 Mg/2 Ml Vial Administered 01/25/24 01:13 Dose 10 mg .ROUTE .STK-MED ONE Lab/Rad Data: Laboratory Result Diagrams 01/24/24 21:55 01/24/24 21:55 Laboratory Results 01/25/24 01/25/24 01/25/24 Range/Units 01:34 01:34 01:34 WBC (4.0-10.5) x10^3/uL RBC (4.1-5.4) x10^6/uL Hgb (12.0-16.0) g/dL Hct (35-47) % MCV (78-100) fL MCH (26-32) pg MCHC (32-36) g/dL RDW (11.5-14.0) % Plt Count (150-450) x10^3/uL MPV (7.5-11.0) fL Gran % (36.0-66.0) % Immature Gran % (Auto) (0.00-0.4) % Nucleat RBC Rel Count (0.00-0.1) % Eos # (Auto) (0-0.5) x10^3/uL Immature Gran # (Auto) (0.00-0.03) x10^3u/L Absolute Lymphs (auto) (1.0-4.6) x10^3/uL Absolute Monos (auto) (0.0-1.3) x10^3/uL Absolute Nucleated RBC (0.00-0.01) x10^3u/L Lymphocytes % (24.0-44.0) % Monocytes % (0.0-12.0) % Eosinophils % (0.00-5.0) % Basophils % (0.0-0.4) % Absolute Granulocytes (1.4-6.9) x10^3/uL Basophils # (0-0.4) x10^3/uL Sodium (135-145) mmol/L Potassium (3.5-5.1) mmol/L Chloride (98-107) mmol/L Carbon Dioxide (22-30) mmol/L Anion Gap (5-15) MEQ/L BUN (7-17) mg/dL Creatinine (0.52-1.04) mg/dL Estimated GFR ML/MIN Glucose (74-106) mg/dL Lactic Acid (0.4-2.0) Calcium (8.4-10.2) mg/dL Magnesium 1.8 (1.6-2.3) mg/dL Total Bilirubin (0.2-1.3) mg/dL AST (14-36) U/L ALT (0-35) U/L Alkaline Phosphatase (38-126) U/L Troponin I < 0.012 (0.000-0.033) ng/mL Serum Total Protein (6.3-8.2) g/dL Albumin (3.5-5.0) g/dL TSH 3rd Generation 4.240 (0.47-4.68) mIU/L Urine Color (Yellow) Urine Appearance (Clear) Urine pH (4.6-8.0) Ur Specific [place] (1.005-1.030) Urine Protein (Negative) Urine Glucose (UA) (Negative) mg/dL Urine Ketones (Negative) Urine Blood (Negative) Urine Nitrite (Negative) Urine Bilirubin (Negative) Urine Urobilinogen (0.2) mg/dL Ur Leukocyte Esterase (Negative) U Hyaline Cast (Auto) (0-2) /LPF Urine Microscopic RBC (0-5) /HPF Urine Microscopic WBC (0-5) /HPF Ur Epithelial Cells (None Seen) /HPF Urine Bacteria (None Seen) /HPF Urine Culture Reflexed (NO) Salicylates (2-20) mg/dL Acetaminophen (10-30) ug/ml Ethyl Alcohol (0-10) mg/dL Influenza Type A Ag (NEGATIVE) Influenza Type B Ag (NEGATIVE) RSV (PCR) (NEGATIVE) SARS-CoV-2 (PCR) (NEGATIVE) 01/25/24 01/24/24 01/24/24 Range/Units 00:02 23:59 22:20 WBC (4.0-10.5) x10^3/uL RBC (4.1-5.4) x10^6/uL Hgb (12.0-16.0) g/dL Hct (35-47) % MCV (78-100) fL MCH (26-32) pg MCHC (32-36) g/dL RDW (11.5-14.0) % Plt Count (150-450) x10^3/uL MPV (7.5-11.0) fL Gran % (36.0-66.0) % Immature Gran % (Auto) (0.00-0.4) % Nucleat RBC Rel Count (0.00-0.1) % Eos # (Auto) (0-0.5) x10^3/uL Immature Gran # (Auto) (0.00-0.03) x10^3u/L Absolute Lymphs (auto) (1.0-4.6) x10^3/uL Absolute Monos (auto) (0.0-1.3) x10^3/uL Absolute Nucleated RBC (0.00-0.01) x10^3u/L Lymphocytes % (24.0-44.0) % Monocytes % (0.0-12.0) % Eosinophils % (0.00-5.0) % Basophils % (0.0-0.4) % Absolute Granulocytes (1.4-6.9) x10^3/uL Basophils # (0-0.4) x10^3/uL Sodium (135-145) mmol/L Potassium (3.5-5.1) mmol/L Chloride (98-107) mmol/L Carbon Dioxide (22-30) mmol/L Anion Gap (5-15) MEQ/L BUN (7-17) mg/dL Creatinine (0.52-1.04) mg/dL Estimated GFR ML/MIN Glucose (74-106) mg/dL Lactic Acid 2.7 H (0.4-2.0) Calcium (8.4-10.2) mg/dL Magnesium (1.6-2.3) mg/dL Total Bilirubin (0.2-1.3) mg/dL AST (14-36) U/L ALT (0-35) U/L Alkaline Phosphatase (38-126) U/L Troponin I (0.000-0.033) ng/mL Serum Total Protein (6.3-8.2) g/dL Albumin (3.5-5.0) g/dL TSH 3rd Generation (0.47-4.68) mIU/L Urine Color Yellow (Yellow) Urine Appearance Clear (Clear) Urine pH 5.5 (4.6-8.0) Ur Specific [place] <=1.005 (1.005-1.030) Urine Protein Negative (Negative) Urine Glucose (UA) Negative (Negative) mg/dL Urine Ketones Negative (Negative) Urine Blood Negative (Negative) Urine Nitrite Negative (Negative) Urine Bilirubin Negative (Negative) Urine Urobilinogen 0.2 (0.2) mg/dL Ur Leukocyte Esterase Negative (Negative) U Hyaline Cast (Auto) NONE SEEN (0-2) /LPF Urine Microscopic RBC 0-2 (0-5) /HPF Urine Microscopic WBC 0-2 (0-5) /HPF Ur Epithelial Cells None Seen (None Seen) /HPF Urine Bacteria None Seen (None Seen) /HPF Urine Culture Reflexed NO (NO) Salicylates (2-20) mg/dL Acetaminophen (10-30) ug/ml Ethyl Alcohol (0-10) mg/dL Influenza Type A Ag NEGATIVE (NEGATIVE) Influenza Type B Ag NEGATIVE (NEGATIVE) RSV (PCR) NEGATIVE (NEGATIVE) SARS-CoV-2 (PCR) NEGATIVE (NEGATIVE) 01/24/24 01/24/24 01/24/24 Range/Units 21:55 21:55 21:55 WBC 5.2 (4.0-10.5) x10^3/uL RBC 4.17 (4.1-5.4) x10^6/uL Hgb 13.8 (12.0-16.0) g/dL Hct 40.1 (35-47) % MCV 96.2 (78-100) fL MCH 33.1 H (26-32) pg MCHC 34.4 (32-36) g/dL RDW 13.8 (11.5-14.0) % Plt Count 232 (150-450) x10^3/uL MPV 8.4 (7.5-11.0) fL Gran % 42.2 (36.0-66.0) % Immature Gran % (Auto) 0.4 (0.00-0.4) % Nucleat RBC Rel Count 0.0 (0.00-0.1) % Eos # (Auto) 0.06 (0-0.5) x10^3/uL Immature Gran # (Auto) 0.02 (0.00-0.03) x10^3u/L Absolute Lymphs (auto) 2.66 (1.0-4.6) x10^3/uL Absolute Monos (auto) 0.22 (0.0-1.3) x10^3/uL Absolute Nucleated RBC 0.00 (0.00-0.01) x10^3u/L Lymphocytes % 51.0 H (24.0-44.0) % Monocytes % 4.2 (0.0-12.0) % Eosinophils % 1.1 (0.00-5.0) % Basophils % 1.1 (0.0-0.4) % Absolute Granulocytes 2.20 (1.4-6.9) x10^3/uL Basophils # 0.06 (0-0.4) x10^3/uL Sodium 128 L (135-145) mmol/L Potassium 3.7 (3.5-5.1) mmol/L Chloride 94 L (98-107) mmol/L Carbon Dioxide 25 (22-30) mmol/L Anion Gap 13.4 (5-15) MEQ/L BUN 8 (7-17) mg/dL Creatinine 0.72 (0.52-1.04) mg/dL Estimated GFR 92.7 ML/MIN Glucose 86 (74-106) mg/dL Lactic Acid (0.4-2.0) Calcium 8.7 (8.4-10.2) mg/dL Magnesium (1.6-2.3) mg/dL Total Bilirubin < 0.10 L (0.2-1.3) mg/dL AST 31 (14-36) U/L ALT 19 (0-35) U/L Alkaline Phosphatase 62 (38-126) U/L Troponin I < 0.012 (0.000-0.033) ng/mL Serum Total Protein 6.8 (6.3-8.2) g/dL Albumin 3.8 (3.5-5.0) g/dL TSH 3rd Generation (0.47-4.68) mIU/L Urine Color (Yellow) Urine Appearance (Clear) Urine pH (4.6-8.0) Ur Specific [place] (1.005-1.030) Urine Protein (Negative) Urine Glucose (UA) (Negative) mg/dL Urine Ketones (Negative) Urine Blood (Negative) Urine Nitrite (Negative) Urine Bilirubin (Negative) Urine Urobilinogen (0.2) mg/dL Ur Leukocyte Esterase (Negative) U Hyaline Cast (Auto) (0-2) /LPF Urine Microscopic RBC (0-5) /HPF Urine Microscopic WBC (0-5) /HPF Ur Epithelial Cells (None Seen) /HPF Urine Bacteria (None Seen) /HPF Urine Culture Reflexed (NO) Salicylates 3.9 (2-20) mg/dL Acetaminophen < 10 L (10-30) ug/ml Ethyl Alcohol 220 H (0-10) mg/dL Influenza Type A Ag (NEGATIVE) Influenza Type B Ag (NEGATIVE) RSV (PCR) (NEGATIVE) SARS-CoV-2 (PCR) (NEGATIVE) 01/24/24 Range/Units 21:53 WBC (4.0-10.5) x10^3/uL RBC (4.1-5.4) x10^6/uL Hgb (12.0-16.0) g/dL Hct (35-47) % MCV (78-100) fL MCH (26-32) pg MCHC (32-36) g/dL RDW (11.5-14.0) % Plt Count (150-450) x10^3/uL MPV (7.5-11.0) fL Gran % (36.0-66.0) % Immature Gran % (Auto) (0.00-0.4) % Nucleat RBC Rel Count (0.00-0.1) % Eos # (Auto) (0-0.5) x10^3/uL Immature Gran # (Auto) (0.00-0.03) x10^3u/L Absolute Lymphs (auto) (1.0-4.6) x10^3/uL Absolute Monos (auto) (0.0-1.3) x10^3/uL Absolute Nucleated RBC (0.00-0.01) x10^3u/L Lymphocytes % (24.0-44.0) % Monocytes % (0.0-12.0) % Eosinophils % (0.00-5.0) % Basophils % (0.0-0.4) % Absolute Granulocytes (1.4-6.9) x10^3/uL Basophils # (0-0.4) x10^3/uL Sodium (135-145) mmol/L Potassium (3.5-5.1) mmol/L Chloride (98-107) mmol/L Carbon Dioxide (22-30) mmol/L Anion Gap (5-15) MEQ/L BUN (7-17) mg/dL Creatinine (0.52-1.04) mg/dL Estimated GFR ML/MIN Glucose (74-106) mg/dL Lactic Acid 3.4 H (0.4-2.0) Calcium (8.4-10.2) mg/dL Magnesium (1.6-2.3) mg/dL Total Bilirubin (0.2-1.3) mg/dL AST (14-36) U/L ALT (0-35) U/L Alkaline Phosphatase (38-126) U/L Troponin I (0.000-0.033) ng/mL Serum Total Protein (6.3-8.2) g/dL Albumin (3.5-5.0) g/dL TSH 3rd Generation (0.47-4.68) mIU/L Urine Color (Yellow) Urine Appearance (Clear) Urine pH (4.6-8.0) Ur Specific [place] (1.005-1.030) Urine Protein (Negative) Urine Glucose (UA) (Negative) mg/dL Urine Ketones (Negative) Urine Blood (Negative) Urine Nitrite (Negative) Urine Bilirubin (Negative) Urine Urobilinogen (0.2) mg/dL Ur Leukocyte Esterase (Negative) U Hyaline Cast (Auto) (0-2) /LPF Urine Microscopic RBC (0-5) /HPF Urine Microscopic WBC (0-5) /HPF Ur Epithelial Cells (None Seen) /HPF Urine Bacteria (None Seen) /HPF Urine Culture Reflexed (NO) Salicylates (2-20) mg/dL Acetaminophen (10-30) ug/ml Ethyl Alcohol (0-10) mg/dL Influenza Type A Ag (NEGATIVE) Influenza Type B Ag (NEGATIVE) RSV (PCR) (NEGATIVE) SARS-CoV-2 (PCR) (NEGATIVE) - Progress Progress: improved, re-examined Progress Note: 01/25/24 02:18 the mag infusion infiltrated and so it was stopped. We called pharmacy to determine if there was any further treatment to the infiltration site to help mitigate injury. 01/25/24 03:52 discussed headache management and need for additional w/u and neurology followup with pt and family. They wish to pursue this as outpt rather than further w/u in ER or obs at this time and have the capacity to make this choice. neuro exam is normal and mental status is normal at this time and she has [facility] capacity with her family as well to make this choice. Counseled pt/family regarding: lab results, diagnosis, need for follow-up, rad results Medical Desision Making - Independent Historian Additional History obtained from: Family - Discussion of managment Reviewed:: Test results, Need for additional workup Agreed on:: Treatment plan, need for follow-up, decision to admit - Diagnostic Testing Diagnostic test were ordered, analyzed, and reviewed by me: Yes Radiological Interpretation: Reviewed by me - Risk of complications The pt has a mod risk of morbidity or mortality based on: Need for prescription drug management The pt has a high risk of morbidity or mortality based on: Decision regarding hospitilization or escalation of hosp level of care - Departure Departure Disposition: Home Clinical Impression: Nodule of right lung, chronic headache exacerbation , cervicogenic pain, right hand IV infiltation Condition: Good Critical Care Time: No Referrals: LAWANDA MERAZ [Primary Care Provider] - Follow up/PCP as directed Instructions: Pulmonary nodule, Migraines (DC), Cluster Headache (DC), Tension Headache (DC), IV Infiltration Additional Instructions: followup with your DrIzzy for right lung nodule seen on CXR see your DrIzzy today to begin some additional headache therapies , get neurology referral, and also some additional workup with labs not available in ER. Have your DrIzzy check and followup on the right hand where the IV infiltrated, as somet imes the skin is damaged from this over time and requires additional treatments. . return meantime if not improving , increased pain, fever, or any other concerns. .
[2024-01-24 21:51] VITALS: TEMP 96.5
[2024-01-24] MEDS ORDERED: Sodium Chloride 0.9% 1000 ML 1,000 ML ONE (21:54)
[2024-01-24] MEDS ORDERED: BENADRYL 50 MG/ML ONE (21:54)
[2024-01-24 22:25] LABS: BASOPHIL % 1.1 % (0.0-0.4); Basophil (Absolute #) 0.06 x10^3/uL (0-0.4); Eosinophil % 1.1 % (0.00-5.0); Eosinophil (Absolute #) 0.06 x10^3/uL (0-0.5); Hematocrit 40.1 % (35-47); Hemoglobin 13.8 g/dL (12.0-16.0); IMMATURE GRAN # 0.02 x10^3u/L (0.00-0.03); IMMATURE GRAN % 0.4 % (0.00-0.4); Lymphocyte (Absolute #) 2.66 x10^3/uL (1.0-4.6); Mean Cell Volume 96.2 fL (78-100); Mean Corpuscular Hemoglobin 33.1 pg (26-32); Mean Corpuscular Hgb Concent. 34.4 g/dL (32-36); Mean Platelet Volume 8.4 fL (7.5-11.0); Monocyte (Absolute #) 0.22 x10^3/uL (0.0-1.3); Monocytes % 4.2 % (0.0-12.0); Neutrophil % 42.2 % (36.0-66.0); Platelet Count 232 x10^3/uL (150-450); Red Blood Count 4.17 x10^6/uL (4.1-5.4); Red Cell Distribution Width 13.8 % (11.5-14.0); White Blood Count 5.2 x10^3/uL (4.0-10.5)
[2024-01-24] MEDS: Sodium Chloride 0.9% 1000 ML 1,000 ML IV STA (22:32)
[2024-01-24] MEDS: BENADRYL 50 MG/ML IV ONE (22:32)
[2024-01-24 22:38] LABS: ACETAMINOPHEN < 10 ug/ml (10-30); ALBUMIN 3.8 g/dL (3.5-5.0); ALKALINE PHOSPHATASE 62 U/L (38-126); ANION GAP 13.4 MEQ/L (5-15); BILIRUBIN,TOTAL < 0.10 mg/dL (0.2-1.3); BLOOD UREA NITROGEN 8 mg/dL (7-17); CHLORIDE 94 mmol/L (98-107); Calcium 8.7 mg/dL (8.4-10.2); Carbon Dioxide 25 mmol/L (22-30); Creatinine 1 0.72 mg/dL (0.52-1.04); EST GLOMERULAR FILTRATION RATE 92.7 ML/MIN; ETHYL ALCOHOL 220 mg/dL (0-10); Glucose 86 mg/dL (74-106); Potassium 3.7 mmol/L (3.5-5.1); SALICYLATE 3.9 mg/dL (2-20); SGOT/AST 31 U/L (14-36); SGPT/ALT 19 U/L (0-35); SODIUM 128 mmol/L (135-145); Total Protein 6.8 g/dL (6.3-8.2)
[2024-01-24 23:01] LABS: INFLUENZA A NEGATIVE (NEGATIVE); INFLUENZA B NEGATIVE (NEGATIVE); RESPIRATORY SYNCTIAL VIRUS NEGATIVE (NEGATIVE); SARS-CoV-2 Xpert Express NEGATIVE (NEGATIVE)
--- NOTE | 2024-01-24 23:18 | XRAY ---
CLINICAL HISTORY: headache severe COMPARISON: 09/17/2021 TECHNIQUE: Axial noncontrast CT scan of the brain was performed from the skull base to the high parietal region. One of the following dose reduction techniques were utilized for this exam: Automated exposure control, adjustment of the mA and/or kV according to patient size, and use of iterative reconstruction. FINDINGS: Age-appropriate global involutional changes are identified as evident by prominent sulci and extra-axial CSF spaces with mild expected dilatation of the ventricles. Mild periventricular deep white matter ischemia is redemonstrated. Redemonstration of a focal chronic lacunar infarct in the left basal ganglia. No evidence of intracranial hemorrhage, gross established territorial infarction or mass effect. Nash and white matter differentiation appears preserved. Diffuse intracranial atherosclerosis is identified. No midline shifts or deformity. No intracerebral or extra axial hematoma. Normal size and configuration of the cerebral ventricles. Normal CT appearance of the posterior fossa structures namely the cerebellar hemispheres, brainstem, and cerebellar peduncles. The IACs are unremarkable. The cerebello-pontine angles are clear. The pituitary gland is unremarkable. There is redemonstration of a focal well-defined sclerotic lesion along the inner table of the squamous part of the left temporal bone measuring 9 x 7.5 mm on the axial section likely representing a focal osteoma. The osseous structures in the skull base are otherwise, unremarkable. No definite calvarial fractures. The nasal septum is mildly deviated towards the right side with an associated bony spur. The scanned paranasal sinuses are clear. IMPRESSION: 1. No significant radiological interval change was identified. 2. Redemonstration of age-appropriate global involutional changes with mild periventricular deep white matter ischemia. 3. Chronic lacunar infarct in the left basal ganglia. 4. No evidence of intracranial hemorrhage, gross established territorial infarction, or mass effect. 5. Diffuse intracranial atherosclerosis. 6. Rest of the findings are redemonstrated and as detailed above. Electronically Signed by: Zaira Anand MD. (01/24/2024 23:14:47 EDT)
[2024-01-25 00:45] LABS: ADD URINE CULTURE? NO (NO); Appearance Clear (Clear); Bacteria None Seen /HPF (None Seen); Bilirubin Negative (Negative); Blood Negative (Negative); Epithelial Cells None Seen /HPF (None Seen); Glucose, Urine Negative (Negative); Hyaline Casts NONE SEEN /LPF (0-2); Ketones Negative (Negative); Leukocyte Esterase Negative (Negative); Nitrite Negative (Negative); Ph 5.5 (4.6-8.0); Protein,Urine Dip Negative (Negative); RBC 0-2 /HPF (0-5); Specific Gravity <=1.005 (1.005-1.030); Urobilinogen 0.2 mg/dL (0.2); WBC 0-2 /HPF (0-5)
[2024-01-25] MEDS ORDERED: Magnesium 1 Gm / 100 Ml D5W*** 100 ML IV ONE (01:12)
[2024-01-25] MEDS ORDERED: TORAdol 30 mg Injection ONE (01:12)
[2024-01-25] MEDS ORDERED: Reglan 10 MG/2 ML ONE (01:12)
[2024-01-25] MEDS: TORAdol 30 mg Injection IV ONE (01:15)
[2024-01-25] MEDS: Magnesium 1 Gm / 100 Ml D5W*** 100 ML IV SCH (01:15)
[2024-01-25] MEDS: Reglan 10 MG/2 ML IV ONE (01:16)
[2024-01-25] MEDS ORDERED: Hydromorphone 1 mg/ml Injection ONE (02:09)
[2024-01-25] MEDS: Hydromorphone 1 mg/ml Injection IM ONE (02:11)
--- NOTE | 2024-01-25 02:33 | XRAY ---
CLINICAL HISTORY: pain and tenderness C SPine COMPARISON: none TECHNIQUE: Computed tomography of the cervical spine performed without intravenous contrast. Contiguous axial images were obtained from the skull base to T2, with sagittal and coronal reformatted images reconstructed from the axial data. CT scan was performed according to ALARA (as low as reasonable achievable). FINDINGS: Mild loss of cervical lordosis-possibility of due to muscular spasm/positional Degenerative changes involving cervical spine in the form of marginal osteophyte, disc space reduction and facet arthrosis at multiple level. Minimal posterior disc bulges noted at C3-C4 and C4-C5 level which indenting ventral thecal sac without significant neuroforaminal narrowing Posterior uncovertebral arthrosis is noted at C5-C6 and C6-C7 which indenting ventral thecal sac and causes mild bilateral neuroforaminal narrowing. Cervical vertebral bodies are normal in height and alignment, with no evidence of fracture or subluxation. Lateral masses of C1 are symmetrical, and the dens is intact. Prevertebral soft tissues are not widened. The remaining suprahyoid and infrahyoid soft tissues in the neck are unremarkable. IMPRESSION: 1.No acute fracture or subluxation in the cervical spine. 2.Cervical spondylosis changes as described above. Electronically Signed by: Campbell Dimas MD. (01/25/2024 02:27:34 EDT)
[2024-01-25 03:34] VITALS: O2SAT 97
[2024-01-25 04:02] VITALS: BP 172/85; PULSE 75; RESP 18
--- NOTE | 2024-01-25 08:46 | XRAY ---
Indication: Decreased breath sounds. Comparison: November 01, 2023 Portable chest remains hyperinflated and clear. Heart not enlarged. Bony thorax intact again with osteopenia, degenerative changes, old right 7 rib fracture, old left clavicle fracture, and new proximal right humerus fracture with orthopedic hardware in situ. Impression: Continued nonacute hyperinflated chest.
== END 2024-01-25 04:10 | disposition home or self-care (01) ==
LOC: ED 21:16
DX: R51.9 Headache, unspecified (principal); G44.86 Cervicogenic headache; R91.1 Solitary pulmonary nodule; T80.89XA Other complications following infusion, transfusion and therapeutic injection, initial encounter; I10 Essential (primary) hypertension; Z79.899 Other long term (current) drug therapy; Z72.0 Tobacco use; Z11.52 Encounter for screening for COVID-19
CPT/HCPCS: 0241U; 36000; 36415; 70450; 71045; 72125; 80053; 80143; 80179; 81001; 82077; 83605; 83735; 84436; 84443; 84484; 85025; 93005; 96360; 96372; 96374; 96375; 99285; J1170; J1200; J1885; J3475

== ENCOUNTER 2024-04-14 14:51 | Emergency (ER) | payer MEDICARE ==
[2024-04-14 15:21] VITALS: TEMP 98
[2024-04-14] MEDS ORDERED: NORCO 10-325 MG PO PRN (15:24)
[2024-04-14 15:36] VITALS: PULSE 74; RESP 18
--- NOTE | 2024-04-14 15:52 | ERPHSYRPT ---
- History of Present Illness Time Seen by Provider: 04/14/24 14:56 Source: patient Exam Limitations: no limitations Patient Subjective Stated Complaint: C/O RUE pain and swelling X 4-5 months. Patient indicates that she had surgery on her RUE 4-5 months ago at [facility] but she can't remember the surgeon's name at this time. Patient states she completed her follow-up appointments with the surgeon and was told that the swelling would subside over time. She would like another opinion. Triage Nursing Assessment: Patient brought back to ER in a W/C. She is alert and oriented with delayed responses at times. Patient appears slightly impaired. This nurse asked patient if she had been drinking today. Patient states she has had a few beers today due to the pain in her arm. She indicates she is drinking beer daily for pain managment. RUE is swollen near surgical scar but is normal tone. No redness of warmth noted. Physician History: 64 years old [id number] female with history of tobacco use presented in the ER with complains of right shoulder pain for the last 4 to 5 months. Patient reports she fell and had some fracture which was fixed by Dr. Capone orthopedic [facility] and since then having off-and-on pain which is lately getting worse. Has severely restricted range of motion in the right upper extremity because of pain in the shoulder area. Patient reports she feels a knot and cannot raise her arm above the head. No new fall or trauma reported. No chest pain palpitations or shortness of breath. Allergies/Adverse Reactions: No Known Drug Allergies Allergy (Verified 04/14/24 15:00) Home Medications: ALPRAZolam [Alprazolam] 0.5 mg PO BID 04/14/24 [History] Buspirone HCl 5 mg [Buspar 5 mg] 5 mg PO BID 04/14/24 [History] Levothyroxine Sodium 50 Mcg [Synthroid 50 Mcg] 50 mcg PO DAILY 04/14/24 [History] Sertraline HCl 50 mg [Zoloft 50 mg Tablet] 100 mg PO DAILY 04/14/24 [History] Trazodone HCl 150 mg PO HS 04/14/24 [History] Hx Tetanus, Diphtheria Vaccination/Date Given: Yes Hx Influenza Vaccination/Date Given: No Hx Pneumococcal Vaccination/Date Given: No Immunizations Up to Date: Yes Travel Risk - International Travel Have you traveled outside of the country in past 3 weeks: No - Emerging Infectious Disease Are you exhibiting symptoms associated with any current EIDs: No - Review of Systems Constitutional: No Symptoms Eyes: No Symptoms Ears, Nose, & Throat: No Symptoms Respiratory: No Symptoms Cardiac: No Symptoms Abdominal/Gastrointestinal: No Symptoms Musculoskeletal: Arthralgias, Joint Pain, Joint Swelling Skin: No Symptoms Neurological: No Symptoms - Past Medical History Pertinent Past Medical History: Yes Neurological History: Migraines ENT History: No Pertinent History Cardiac History: Hypertension Respiratory History: COPD Endocrine Medical History: Hypothyroidism Musculoskeletal History: Arthritis, Degenerative Disk Disease, Fractures GI Medical History: No Pertinent History History: No Pertinent History Psycho-Social History: Anxiety, Depression Female Reproductive Disorders: No Pertinent History Other Medical History: pain clinic patient - Past Surgical History Past Surgical History: Yes Neuro Surgical History: No Pertinent History Cardiac: No Pertinent History Respiratory: No Pertinent History Gastrointestinal: No Pertinent History Genitourinary: No Pertinent History Musculoskeletal: No Pertinent History Female Surgical History: Hysterectomy Other Surgical History: partial hysterectomy (left ovary removed), RUE repair with metal in it, foot, ankle - Social History Smoking Status: Current every day smoker How long have you smoked: 40+ years Exposure to second hand smoke: Yes Alcohol Use: Chronic Drug Use: none Patient Lives Alone: No - Social Determinants of Health Will the patient participate in the screening: Declined to provide - Nursing Vital Signs Nursing Vital Signs: Initial Vital Signs Blood Pressure 147/79 04/14/24 15:00 O2 Sat by Pulse Oximetry 93 L 04/14/24 15:00 Pain Scale Pain Intensity 10 - Physical Exam General Appearance: no apparent distress Neck Exam: normal inspection, non-tender, supple, full range of motion Cardiovascular/Respiratory Exam: normal breath sounds, regular rate/rhythm Shoulder Exam: bone tenderness (Acromioclavicular and upper humerus), limited ROM, soft tissue tenderness Elbow/Forearm Exam: normal inspection, non-tender, no evidence of injury, normal ROM Wrist Exam: normal inspection, non-tender, no evidence of injury, normal ROM Hand Exam: normal inspection Neuro/Tendon Exam: normal sensation Mental Status Exam: alert, oriented x 3, cooperative Skin Exam: normal color SpO2 Interpretation: normal SpO2: 95 O2 Delivery: Room Air Ordered Tests: Active Orders 24 hr Category Date Time Status SHOULDER Stat Exams 04/14/24 15:24 Completed Medication Summary Discontinued Medications Generic Name Dose Route Start Last Admin Trade Name Parveen PRN Reason Stop Dose Admin Hydrocodone Bitart/Acetaminophen 1 tablet 04/14/24 15:24 Hydrocodone/Acetamin 10-325 Mg Tablet PO 04/19/24 15:23 Q4H PRN PRN PAIN Hydrocodone Bitart/Acetaminophen 1 tablet 04/14/24 16:31 04/14/24 16:36 Hydrocodone/Acetamin 10-325 Mg Tablet PO 04/14/24 16:32 1 tablet ONCE STA Administration Hydrocodone Bitart/Acetaminophen Confirm 04/14/24 16:35 Hydrocodone/Acetamin 10-325 Mg Tablet Administered 04/14/24 16:36 Dose 1 tablet .ROUTE .STK-MED ONE - Progress Progress: improved, pain not gone completely, re-examined Progress Note: 04/14/24 16:44 64 years old with history of shoulder fracture fixed by Dr. Capone at [place] few months ago is evaluated for increasing pain and feeling a lot in the upper shoulder/arm area. Patient is given symptomatic treatment for pain. She has intact distal neurovascular grossly. Reports some tingling sensation of the fingertips. Intact radial nerve, no wrist drop. I have obtained x-rays which showed humeral shaft comminuted fracture with fixation interlocking IM nailing without any callus formation. Patient has 12 cm displaced fracture fragment which she thinks is a knot. I have recommended follow-up back with Dr. Capone who has originally performed the surgery, will also give follow-up for orthopedics in here to see if they want to do any revision. Usually surgical cases go back to the original surgeon. I would give her diclofenac to go home and outpatient follow-up recommended. Discussed signs symptoms of worsening renal return to ER which she seems understanding. Counseled pt/family regarding: diagnosis, need for follow-up, rad results Medical Desision Making - Independent Historian Additional History obtained from: Spouse - Diagnostic Testing Diagnostic test were ordered, analyzed, and reviewed by me: Yes Radiological Interpretation: Interpreted by me, Reviewed by me - Risk of complications The pt has a mod risk of morbidity or mortality based on: Need for prescription drug management - Departure Departure Disposition: Home Clinical Impression: Arm fracture, right Condition: Stable Critical Care Time: No Referrals: LAWANDA MERAZ [Primary Care Provider] - Follow up/PCP as directed KIP LI MD [ACTIVE STAFF] - Follow up other (Call for appointment) ALBANIA CAPONE MD [NON-STAFF PHY W/O PRIVILEGES] - Follow up/PCP as directed (Call for appointment) Instructions: Upper Arm Fracture ED Additional Instructions: Take Tylenol/diclofenac as needed. Follow-up with orthopedic surgery for reevaluation. Return to ER for increasing pain or if have swelling, numbness tingling weakness distally. Prescriptions: Diclofenac Sodium 50 mg [Voltaren 50 mg] 50 mg PO TID PRN 10 Days #25 tablet PRN Reason: Pain
--- NOTE | 2024-04-14 16:23 | XRAY ---
Indication: Pain. Status post injury 3 months ago. Comparison: September 29, 2023 3 view right shoulder demonstrates new intramedullary mandie with proximal/distal transverse screws fixating previous humeral shaft comminuted fracture. Apposition/alignment improved without obvious bridging callus formation. 12 cm displaced fracture fragment. Remaining shoulder unchanged again with osteopenia, mild AC degenerative changes, and old right 7 rib fracture.
[2024-04-14] MEDS ORDERED: NORCO 10-325 MG ONE (16:35)
[2024-04-14] MEDS: NORCO 10-325 MG PO STA (16:36)
[2024-04-14 16:40] VITALS: BP 123/74
[2024-04-14 16:48] VITALS: O2SAT 95
== END 2024-04-14 17:30 | disposition home or self-care (01) ==
LOC: ED 14:51
DX: S42.351A Displaced comminuted fracture of shaft of humerus, right arm, initial encounter for closed fracture (principal); W19.XXXA Unspecified fall, initial encounter; I10 Essential (primary) hypertension; Z79.899 Other long term (current) drug therapy; Z72.0 Tobacco use
CPT/HCPCS: 73030; 99283; A9270-GY

== ENCOUNTER 2024-04-20 19:03 | Emergency (ER) | payer MEDICARE, OTHER ==
[2024-04-20 19:24] VITALS: TEMP 98.6; O2SAT 95
[2024-04-20] MEDS ORDERED: NORCO 5/325 MG ONE ×2 (19:42→21:26)
--- NOTE | 2024-04-20 19:42 | ERPHSYRPT ---
- History of Present Illness Time Seen by Provider: 04/20/24 19:39 Source: patient Exam Limitations: no limitations Patient Subjective Stated Complaint: fall at home Triage Nursing Assessment: pt brought into room 5 via wheelchair by this nurse, assisted into bed. Pt fell at home in the bedroom at approx 1830 tonight. Pt c/o rt sided back/rib pain. No bruises or deformities noted. Pt denies any loc. Pt did not strike any objects during the fall. Pt is wearing very large, poofy big foot slippers which could've contributed to the pt's fall. Pt was also not using her walker when the fall occured. Physician History: 64-year-old female presents to our ED for evaluation of right rib pain after a fall. Patient was ambulating in her home. Patient was wearing excessively large [place] slippers when she fell. She was not using her walker which she normally uses for ambulation. Patient fell just prior to arrival. No BHT or LOC. No neck pain. Cervical spine cleared clinically. Patient complains of localized pain to her right lateral rib cage. Pain described as an ache. No radiation. Pain worse with movement and palpation. Pain improved with rest. Patient voices no other complaints or concerns at this time Portions of this note were created with voice recognition technology. There may be grammatical, spelling, punctuation or sound alike errors Timing/Duration: today Severity: moderate Modifying Factors: Improves With: movement Associated Symptoms: denies symptoms Allergies/Adverse Reactions: No Known Drug Allergies Allergy (Verified 04/14/24 15:00) Home Medications: ALPRAZolam [Alprazolam] 0.5 mg PO BID 04/14/24 [History] Buspirone HCl 5 mg [Buspar 5 mg] 5 mg PO BID 04/14/24 [History] Levothyroxine Sodium 50 Mcg [Synthroid 50 Mcg] 50 mcg PO DAILY 04/14/24 [History] Sertraline HCl 50 mg [Zoloft 50 mg Tablet] 100 mg PO DAILY 04/14/24 [History] Trazodone HCl 150 mg PO HS 04/14/24 [History] Hx Tetanus, Diphtheria Vaccination/Date Given: Yes Hx Influenza Vaccination/Date Given: No Hx Pneumococcal Vaccination/Date Given: No Travel Risk - International Travel Have you traveled outside of the country in past 3 weeks: No - Emerging Infectious Disease Are you exhibiting symptoms associated with any current EIDs: No - Review of Systems Constitutional: No Symptoms, No Fever, No Chills Eyes: No Symptoms Ears, Nose, & Throat: No Symptoms Respiratory: No Symptoms, No Cough, No Dyspnea Cardiac: No Symptoms, No Chest Pain, No Edema, No Syncope Abdominal/Gastrointestinal: No Symptoms, No Abdominal Pain, No Nausea, No Vomiting, No Diarrhea Genitourinary Symptoms: No Symptoms, No Dysuria Musculoskeletal: No Symptoms, No Back Pain, No Neck Pain Skin: No Symptoms, No Rash Neurological: No Symptoms, No Dizziness, No Focal Weakness, No Sensory Changes Psychological: No Symptoms Endocrine: No Symptoms Hematologic/Lymphatic: No Symptoms Immunological/Allergic: No Symptoms All Other Systems: Reviewed and Negative - Past Medical History Pertinent Past Medical History: Yes Neurological History: Migraines ENT History: No Pertinent History Cardiac History: Hypertension Respiratory History: COPD Endocrine Medical History: No Pertinent History, Hypothyroidism Musculoskeletal History: Arthritis, Degenerative Disk Disease, Fractures GI Medical History: No Pertinent History History: No Pertinent History Psycho-Social History: Anxiety, Depression Female Reproductive Disorders: No Pertinent History Other Medical History: pain clinic patient - Past Surgical History Past Surgical History: Yes Neuro Surgical History: No Pertinent History Cardiac: No Pertinent History Respiratory: No Pertinent History Gastrointestinal: No Pertinent History Genitourinary: No Pertinent History Musculoskeletal: No Pertinent History Female Surgical History: Hysterectomy Other Surgical History: partial hysterectomy (left ovary removed), RUE repair with metal in it, foot, ankle - Social History Smoking Status: Current every day smoker How long have you smoked: 52 yrs Exposure to second hand smoke: Yes Alcohol Use: Chronic Drug Use: none Patient Lives Alone: No - Social Determinants of Health Will the patient participate in the screening: Yes Do you worry about a steady place to live?: No Do you have any problems with any of the following?: No known problems In the past 12 months,have you had to go without utilities?: No Transportation Issues: No Has anyone in your support network made you feel unsafe?: No Have you or anyone in your house had to go without enough: No - Nursing Vital Signs Nursing Vital Signs: Initial Vital Signs Temperature 98.6 F 04/20/24 19:23 Pulse Rate 73 04/20/24 19:23 Respiratory Rate 18 04/20/24 19:23 Blood Pressure 143/84 04/20/24 19:23 O2 Sat by Pulse Oximetry 95 04/20/24 19:23 Pain Scale Pain Intensity 5 - Physical Exam General Appearance: no apparent distress, alert Eye Exam: PERRL/EOMI, eyes nml inspection Ears, Nose, Throat Exam: normal ENT inspection, TMs normal, pharynx normal, moist mucous membranes Neck Exam: normal inspection, non-tender, supple, full range of motion Respiratory Exam: normal breath sounds, lungs clear, No respiratory distress Cardiovascular Exam: regular rate/rhythm, normal heart sounds, normal peripheral pulses Gastrointestinal/Abdomen Exam: soft, normal bowel sounds, No tenderness, No mass Back Exam: normal inspection, normal range of motion, No CVA tenderness, No vertebral tenderness Extremity Exam: normal inspection, normal range of motion, pelvis stable Neurologic Exam: alert, oriented x 3, cooperative, normal mood/affect, nml cerebellar function, nml station & gait, sensation nml, No motor deficits Skin Exam: normal color, warm, dry, No rash Lymphatic Exam: No adenopathy SpO2 Interpretation: normal SpO2: 95 O2 Delivery: Room Air - Course Nursing assessment & vital signs reviewed: Yes - CT Exams Chest CT Interpretation: Tele-radiologist Report (New tiny nondisplaced lateral right 6 7 and 8 acute rib fractures without pneumothorax. Stable pulmonary fibrosis and scarring. Multiple old right rib fractures and right shoulder old non united humerus fracture with hardware.) Ordered Tests: Active Orders 24 hr Category Date Time Status IV Insertion STAT Care 04/20/24 19:37 Active CHEST WITHOUT CONTRAST [CT] Stat Exams 04/20/24 19:36 Taken CBC W DIFF Stat Lab 04/20/24 19:35 Completed CMP Stat Lab 04/20/24 19:35 Completed Incentive Spirometry UD RT 04/20/24 21:25 Active Medication Summary Generic Name Dose Route Start Last Admin Trade Name Freq PRN Reason Stop Dose Admin Hydrocodone Bitart/Acetaminophen 4 tab 04/20/24 21:23 Hydrocodone/Apap 5/325 1 Tab Tablet PO 04/25/24 21:22 Q4H PRN PRN PAIN Discontinued Medications Generic Name Dose Route Start Last Admin Trade Name Freq PRN Reason Stop Dose Admin Hydrocodone Bitart/Acetaminophen 1 tab 04/20/24 19:40 04/20/24 19:43 Hydrocodone/Apap 5/325 1 Tab Tablet PO 04/20/24 19:41 1 tab STAT ONE Administration Hydrocodone Bitart/Acetaminophen Confirm 04/20/24 19:42 Hydrocodone/Apap 5/325 1 Tab Tablet Administered 04/20/24 19:43 Dose 1 tab .ROUTE .STK-MED ONE Morphine Sulfate 2 mg 04/20/24 20:35 04/20/24 20:44 Morphine Sulfate 2 Mg/Ml Inj IV 04/20/24 20:36 2 mg STAT ONE Administration Morphine Sulfate Confirm 04/20/24 20:44 Morphine Sulfate 2 Mg/Ml Inj Administered 04/20/24 20:45 Dose 2 mg .ROUTE .STK-MED ONE Lab/Rad Data: Laboratory Result Diagrams 04/20/24 19:35 04/20/24 19:35 Laboratory Results 04/20/24 04/20/24 Range/Units 19:35 19:35 WBC 6.7 (3.98-10.04) x10^3/uL RBC 3.79 L (3.93-5.22) x10^6/uL Hgb 13.2 (11.2-15.7) g/dL Hct 38.7 (34.1-44.9) % MCV 102.1 H (79.4-94.8) fL MCH 34.8 H (25.6-32.2) pg MCHC 34.1 (32.2-35.5) g/dL RDW 14.4 (11.7-14.4) % Plt Count 260 (182-369) x10^3/uL MPV 8.7 L (9.4-12.3) fL Gran % 62.7 (34.0-71.1) % Immature Gran % (Auto) 0.4 (0.001-0.429) % Nucleat RBC Rel Count 0.0 (0.00-0.2) % Eos # (Auto) 0.07 (0.04-0.36) x10^3/uL Immature Gran # (Auto) 0.03 (0.001-0.031) x10^3u/L Absolute Lymphs (auto) 2.04 (1.18-3.74) x10^3/uL Absolute Monos (auto) 0.35 (0.24-0.86) x10^3/uL Absolute Nucleated RBC 0.00 (0.00-0.012) x10^3u/L Lymphocytes % 30.3 (19.3-51.7) % Monocytes % 5.2 (4.7-12.5) % Eosinophils % 1.0 (0.7-5.8) % Basophils % 0.4 (0.1-1.2) % Absolute Granulocytes 4.22 (1.56-6.13) x10^3/uL Basophils # 0.03 (0.01-0.08) x10^3/uL Sodium 129 L (135-145) mmol/L Potassium 3.9 (3.5-5.1) mmol/L Chloride 93 L (98-107) mmol/L Carbon Dioxide 23 (22-30) mmol/L Anion Gap 16.5 H (5-15) MEQ/L BUN 9 (7-17) mg/dL Creatinine 0.70 (0.52-1.04) mg/dL Estimated GFR 95.3 ML/MIN Glucose 102 (74-106) mg/dL Calcium 9.0 (8.4-10.2) mg/dL Total Bilirubin 0.30 (0.2-1.3) mg/dL AST 43 H (14-36) U/L ALT 19 (0-35) U/L Alkaline Phosphatase 60 (38-126) U/L Serum Total Protein 6.9 (6.3-8.2) g/dL Albumin 4.0 (3.5-5.0) g/dL - Progress Progress: improved Progress Note: 64-year-old female presents to our ED for evaluation status post mechanical fall. The fall was not associated with any neuro cardiovascular symptomology. Patient complains of right rib pain. No other injuries reported. CT scan reveals nondisplaced fracture of the right lateral sixth through eighth ribs. 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 In light of the multiple fractures and pain we advised hospitalization for pain control. Patient declined. Patient requested discharge. Patient's pain improved after [place] and morphine. We provided patient with an incentive spirometer. Patient will be discharged home. Prescription for Toradol forwarded to patient's pharmacy. Patient also given 4 pills of [place] for home use. Patient agrees to follow-up with her primary care doctor within 48 hours for reevaluation. Portions of this note were created with voice recognition technology. There may be grammatical, spelling, punctuation or sound alike errors Complexity problem addressed is moderate acute complicated. No critical care time. Complexity of data reviewed and analyzed is moderate. Test ordered test reviewed results analyzed and correlated clinically with history and physical exam. Risk of complication and or risk of morbidity/mortality patient management is high. Patient received morphine and [place] in our ED. Vital stable. Time spent to discharge patient is approximately 20 minutes. Plan of care established for shared decision making. No social determinants of health present impede follow-up Portions of this note were created with voice recognition technology. There may be grammatical, spelling, punctuation or sound alike errors 04/20/24 21:24 Patient also given a right upper extremity sling for comfort 04/20/24 21:29 Counseled pt/family regarding: diagnosis, need for follow-up, rad results - Departure Departure Disposition: Home Clinical Impression: Fall, Ribs, multiple fractures Condition: Stable Critical Care Time: No Referrals: LAWANDA MERAZ [Primary Care Provider] - Follow up/PCP as directed Additional Instructions: Discharge/Care Plan TONI,RITA TORRES was seen on 04/20/24 in the Emergency Room. The patient was counseled regarding Diagnosis,Lab results, Imaging studies, need for follow up and when to return to the Emergency Room. Prescriptions given: Discharge Note I have spoken with the patient and/or caregivers. I have explained the patient's condition, diagnosis and treatment plan based on the information available to me at this time. I have answered the patient's and/or caregiver's questions and addressed any concerns. The patient and/or caregivers have as good understanding of the patient's diagnosis, condition and treatment plan as can be expected at this point. The vital signs have been stable. The patient's condition is stable and appropriate for discharge from the emergency department. The patient will pursue further outpatient evaluation with the primary care phys ician or other designated or consulting physician as outlined in the discharge instructions. The patient and/or caregivers are agreeable to this plan of care and follow-up instructions have been explained in detail. The patient and/or caregivers have received these instruction. The patient/and or caregivers are aware that any significant change in condition or worsening of symptoms should prompt an immediate return to this or the closest emergency department or call 911.
[2024-04-20] MEDS: NORCO 5/325 MG PO ONE (19:43)
[2024-04-20 19:50] LABS: Absolute Neutrophil Ct (ANC) 4.22 x10^3/uL (1.56-6.13); BASOPHIL % 0.4 % (0.1-1.2); Basophil (Absolute #) 0.03 x10^3/uL (0.01-0.08); Eosinophil (Absolute #) 0.07 x10^3/uL (0.04-0.36); Hematocrit 38.7 % (34.1-44.9); Hemoglobin 13.2 g/dL (11.2-15.7); IMMATURE GRAN # 0.03 x10^3u/L (0.001-0.031); IMMATURE GRAN % 0.4 % (0.001-0.429); Lymphocyte (Absolute #) 2.04 x10^3/uL (1.18-3.74); Lymphocytes % 30.3 % (19.3-51.7); Mean Cell Volume 102.1 fL (79.4-94.8); Mean Corpuscular Hemoglobin 34.8 pg (25.6-32.2); Mean Corpuscular Hgb Concent. 34.1 g/dL (32.2-35.5); Mean Platelet Volume 8.7 fL (9.4-12.3); Monocyte (Absolute #) 0.35 x10^3/uL (0.24-0.86); Monocytes % 5.2 % (4.7-12.5); Neutrophil % 62.7 % (34.0-71.1); Platelet Count 260 x10^3/uL (182-369); Red Blood Count 3.79 x10^6/uL (3.93-5.22); Red Cell Distribution Width 14.4 % (11.7-14.4); White Blood Count 6.7 x10^3/uL (3.98-10.04)
[2024-04-20 20:03] LABS: ANION GAP 16.5 MEQ/L (5-15); BILIRUBIN,TOTAL 0.3 mg/dL (0.2-1.3); Creatinine 1 0.7 mg/dL (0.52-1.04); EST GLOMERULAR FILTRATION RATE 95.3 ML/MIN; Potassium 3.9 mmol/L (3.5-5.1); Total Protein 6.9 g/dL (6.3-8.2)
[2024-04-20] MEDS: MORPHINE SULFATE 2 MG INJ IV ONE (20:44)
[2024-04-20] MEDS ORDERED: MORPHINE SULFATE 2 MG INJ ONE (20:44)
[2024-04-20 21:25] VITALS: BP 118/70; PULSE 71; RESP 16
[2024-04-20] MEDS: NORCO 5/325 MG PO PRN (21:27)
--- NOTE | 2024-04-21 08:40 | XRAY ---
Indication: Right rib pain following fall. Multiple contiguous axial images obtained through the chest without contrast. Comparison: February 10, 2024 Lungs demonstrates stable posterior right lower lobe calcified granuloma and minimal bilateral peripheral fibrosis/scarring. No new pulmonary mass/nodule, infiltrate, effusion, or pneumothorax. Heart not enlarged again with scattered coronary calcifications. Aorta remains mildly arteriosclerotic without aneurysm. Stable tiny right hilar calcified nodes. No pathologic mediastinal lymphadenopathy. Bony thorax demonstrates new nondisplaced lateral right 6-8 acute rib fractures. Stable osteopenia, minimal degenerative changes throughout spine, old right rib fractures, and incompletely visualized right humerus orthopedic hardware. Limited upper abdomen again demonstrates left renal atrophy and incidental tiny hepatic/splenic calcified granulomas. Impression: 1. New nondisplaced lateral right 6-8 acute rib fractures without hemothorax/pneumothorax. 2. Again chronic findings including pulmonary fibrosis/scarring, arteriosclerotic disease, chronic bony findings, left renal atrophy, and old granulomatous disease.
== END 2024-04-20 21:49 | disposition home or self-care (01) ==
LOC: ED 19:03
DX: S22.41XA Multiple fractures of ribs, right side, initial encounter for closed fracture (principal); W18.39XA Other fall on same level, initial encounter; Y93.01 Activity, walking, marching and hiking; I10 Essential (primary) hypertension; Z79.899 Other long term (current) drug therapy; Z72.0 Tobacco use
CPT/HCPCS: 36000; 36415; 71250; 80053; 85025; 96374; 99284; J2270; A9270-GY